=== PATIENT | male | born 1950 | race Caucasian/White ===

== ENCOUNTER 2019-09-17 07:48 | Outpatient (CLI) | payer MEDICARE, OTHER, SELFPAY ==
[2019-09-17 08:16] LABS: Alanine Aminotransferase 51 U/L (4-50); Cholesterol 121 mg/dL (0-200); HDL Direct 29 mg/dL; Triglycerides 164 mg/dL (<150)
[2019-09-17 08:27] LABS: LDL Cholesterol Direct 34 mg/dL
== END 2019-09-17 07:49 | disposition home or self-care (01) ==
LOC: ANHLAB 07:52
PROVIDERS: PCP Family Medicine; Visit Provider Family Medicine
DX: E78.5 Hyperlipidemia, unspecified (principal)
CPT/HCPCS: 36415; 80061; 84460

== ENCOUNTER 2019-12-30 08:22 | Outpatient (CLI) | payer MEDICARE, OTHER, SELFPAY ==
[2019-12-30 09:43] LABS: Thyroid Stimulating Hormone < 0.015 uIU/mL (0.465-4.680)
[2019-12-30 09:49] LABS: Free T4 Free Thyroxine 1.88 ng/mL (0.78-2.19)
[2020-01-07 04:25] LABS: Thyroglobulin <0.1 ng/mL (2.8-40.9); Thyroglobulin Antibodies <1 IU/mL (<=1)
== END 2019-12-30 08:23 | disposition home or self-care (01) ==
PROVIDERS: PCP Family Medicine
DX: C73 Malignant neoplasm of thyroid gland (principal)
CPT/HCPCS: 36415; 84432; 84439; 84443; 86800

== ENCOUNTER 2020-03-09 07:41 | Outpatient (CLI) | payer MEDICARE, SELFPAY ==
[2020-03-09 09:04] LABS: Thyroid Stimulating Hormone 0.101 uIU/mL (0.465-4.680)
[2020-03-09 09:07] LABS: Free T4 Free Thyroxine 1.53 ng/mL (0.78-2.19)
== END 2020-03-09 07:42 | disposition home or self-care (01) ==
PROVIDERS: PCP Family Medicine
DX: C73 Malignant neoplasm of thyroid gland (principal)
CPT/HCPCS: 36415; 84439; 84443

== ENCOUNTER 2020-08-04 07:42 | Outpatient (CLI) | payer MEDICARE, SELFPAY ==
[2020-08-04 07:58] LABS: Hematocrit 41.8 % (42.0-52.0); Mean Corpuscular HGB Conc 33.5 g/dl (32-36); Mean Corpuscular Volume 92.7 fl (80-100); Mean Platelet Volume 9.7 fl (7.4-10.4); Platelet Count Result 211 k/mm3 (150-375); Red Blood Count 4.51 M/mm3 (4.6-6.20); Red Cell Distribution Width 12.8 % (11.5-14.5); White Blood Count 6.7 K/mm3 (4.5-10.0)
[2020-08-04 08:09] LABS: Alanine Aminotransferase 45 U/L (4-50); Albumin Level 4.1 g/dL (3.5-5.1); Alkaline Phosphatase 54 U/L (38-126); Aspartate Amino Transferase 38 U/L (17-59); Bilirubin,Total 0.4 mg/dL (0.2-1.3); Cholesterol 138 mg/dL (0-200); HDL Direct 30 mg/dL; Triglycerides 208 mg/dL (<150)
[2020-08-04 08:34] LABS: LDL Cholesterol Direct < 30 mg/dL
[2020-08-04 08:42] LABS: Prostate Specific Antigen 2.5 ng/mL (< OR = 4.0); Thyroid Stimulating Hormone 0.041 uIU/mL (0.465-4.680)
[2020-08-04 09:00] LABS: Free T4 Free Thyroxine 1.88 ng/mL (0.78-2.19)
== END 2020-08-04 07:43 | disposition home or self-care (01) ==
PROVIDERS: PCP Family Medicine; Visit Provider Family Medicine
DX: K57.90 Diverticulosis of intestine, part unspecified, without perforation or abscess without bleeding (principal); E03.9 Hypothyroidism, unspecified; E78.2 Mixed hyperlipidemia; Z12.5 Encounter for screening for malignant neoplasm of prostate; Z13.220 Encounter for screening for lipoid disorders
CPT/HCPCS: 36415; 80061; 80076; 84153; 84439; 84443; 85027; G0103

== ENCOUNTER 2020-09-05 07:44 | Outpatient (CLI) | payer MEDICARE, SELFPAY ==
[2020-09-05 08:08] LABS: Basophils Percent Auto 0.4 % (0.2-1.2); Eosinophils Absolute Auto 0.1 K/mm3 (0-0.3); Eosinophils Percent Auto 1.4 % (0-4.4); Hematocrit 43.2 % (42.0-52.0); Hemoglobin 14.7 g/dL (14.0-18.0); Immature Granulocyte Absolute 0.03 K/mm3 (0.00-0.031); Immature Granulocyte Percent A 0.4 % (0-0.5); Lymphocytes Absolute Auto 2.98 K/mm3 (0.9-3.2); Lymphocytes Percent Auto 41.3 % (18.3-44.2); Mean Corpuscular Hemoglobin 31.3 pg (26-34); Mean Corpuscular Volume 92.1 fl (80-100); Mean Platelet Volume 9.9 fl (7.4-10.4); Monocytes Absolute Auto 0.6 K/mm3 (0.1-0.6); Monocytes Percent Auto 8.6 % (2.6-8.5); Neutrophils Absolute Auto 3.5 K/mm3 (1.3-6.7); Neutrophils Percent Auto 47.9 % (45.5-73.1); Platelet Count Result 225 k/mm3 (150-375); Red Blood Count 4.69 M/mm3 (4.6-6.20); White Blood Count 7.2 K/mm3 (4.5-10.0)
== END 2020-09-05 07:45 | disposition home or self-care (01) ==
PROVIDERS: PCP Family Medicine; Visit Provider Nurse Practitioner Family
DX: K57.90 Diverticulosis of intestine, part unspecified, without perforation or abscess without bleeding (principal)
CPT/HCPCS: 36415; 85025

== ENCOUNTER 2020-12-20 07:44 | Outpatient (CLI) | payer MEDICARE, SELFPAY ==
[2020-12-20 08:58] LABS: Free T4 Free Thyroxine 1.98 ng/mL (0.78-2.19)
[2020-12-20 09:07] LABS: Thyroid Stimulating Hormone 0.044 uIU/mL (0.465-4.680)
[2020-12-24 01:39] LABS: Thyroglobulin <0.1 ng/mL (2.8-40.9); Thyroglobulin Antibodies <1 IU/mL (<=1)
== END 2020-12-20 07:45 | disposition home or self-care (01) ==
LOC: ANHLAB 07:50
PROVIDERS: PCP Family Medicine
DX: C73 Malignant neoplasm of thyroid gland (principal)
CPT/HCPCS: 36415; 84432; 84439; 84443; 86800

== ENCOUNTER 2021-05-05 08:14 | Outpatient (CLI) | payer MEDICARE, SELFPAY ==
[2021-05-05 09:06] LABS: Cholesterol 108 mg/dL (0-200); HDL Direct 28 mg/dL; Triglycerides 152 mg/dL (<150)
[2021-05-05 09:20] LABS: LDL Cholesterol Direct < 30 mg/dL
== END 2021-05-05 08:15 | disposition home or self-care (01) ==
LOC: ANHLAB 08:16
PROVIDERS: PCP Family Medicine; Visit Provider Family Medicine
DX: E78.2 Mixed hyperlipidemia (principal)
CPT/HCPCS: 36415; 80061

== ENCOUNTER 2021-11-23 10:39 | Emergency (ER) | payer MEDICARE, SELFPAY ==
[2021-11-23 10:50] VITALS: BP 150/83; PULSE 66; RESP 24; TEMP 36.3; O2SAT 100
--- NOTE | 2021-11-23 10:54 | ED.GENADULT ---
HPI - General Adult General Chief complaint: Chest Pain Stated complaint: Abdominal Pain History of Present Illness HPI narrative: 71 y/o male. PMHx Thyroid carcinoma, S/P Thyroidectomy, Secondary Hypothyroid, Dyslipidemia. Presents to [facility] this AM with acute complaints of mid-epigastric chest pain. The patient reports a sharp mid-epigastric discomfort, present for the past 48 hours. He tells me this started with left side chest pain, now radiating mid-sternal since awakening this AM. -Associated dyspnea. No cough. -Denies dizziness, palpitations, N/V, edema. -Non-smoker. -Resume Statin. -No prior cardiac intervention or stenting. -Family Hx of cardiac disease, HTN. Related Data Home Medications Medication Instructions Recorded Confirmed aspirin 81 mg tablet,delayed 81 mg PO DAILY 02/26/20 11/23/21 release levothyroxine 25 mcg tablet 12.5 mcg PO DAILY 02/26/20 11/23/21 (Synthroid) multivitamin 1 tablet PO DAILY 02/26/20 11/23/21 Allergies Allergy/AdvReac Type Severity Reaction Status Date / Time No Known Allergies Allergy Verified 11/23/21 10:51 Review of Systems Review of Systems: Cardiovascular: Chest Pain. Remainder of ROS Reviewed: Negative. [facility] Past Medical History Medical History BMI 25.0-25.9,adult BMI 26.0-26.9,adult Diverticul disease small and large intestine, no perforati or abscess Hypothyroidism Insomnia Mixed hyperlipidemia Screening for prostate cancer Surgical History Surgical History H/O thyroidectomy History of tonsillectomy Family History Family History Father No problems noted. Mother No problems noted. Sibling No problems noted. Other Family history of elevated blood lipids Family history of thyroid disease Hypertension Social History Social History Smoking status: Never smoker Alcohol intake: current Exam Narrative: GENERAL: no apparent distress. EYES: PERRL. EARS: External ears normal. NOSE: External nose normal. CARDIOVASCULAR: Regular rate and rhythm. RESPIRATORY: Clear to auscultation. GASTROINTESTINAL: Abdomen soft SKIN: NEURO: Alert, and age appropriate. EXTREMITIES: No edema. Course Course Level of Care: Express Care Visit Vital Signs Vital signs: Vital Signs Temperature 36.3 C L 11/23/21 10:50 Pulse Rate 66 11/23/21 10:50 Respiratory Rate 24 H 11/23/21 10:50 Blood Pressure 150/83 H 11/23/21 10:50 Pulse Oximetry 100 11/23/21 10:50 Oxygen Delivery Room Air 11/23/21 10:50 Temperature 36.3 C L 11/23/21 11:12 Pulse Rate 66 11/23/21 11:12 Respiratory Rate 24 H 11/23/21 11:12 Blood Pressure 150/83 H 11/23/21 11:12 Pulse Oximetry 100 11/23/21 11:12 Oxygen Delivery Room Air 11/23/21 11:12 Transfer Transfered to: [facility] (ED) Transportation: ALS Transfer rationale: ACS, Inferior SC. Accepting physician: MD Patel Medical Decision Making MDM Narrative Medical decision making narrative: -ECG: ACS V2-6 ST elevations, new ischemic findings. -ASA 324 given X1. -IV Access established. -EMS/ALS Transport to [facility]. -Accepting ED MD Patel. Differential Diagnosis Differential Diagnosis: Differential Diagnosis: Consideration of the following conditions may be warranted for the presenting problem, they are not final diagnoses: : ACS, AAA, PE, PNA, GERD, Musculoskeletal pain, and/or other. Vital Signs Vital Signs: Vital Signs Temperature 36.3 C L 11/23/21 10:50 Pulse Rate 66 11/23/21 10:50 Respiratory Rate 24 H 11/23/21 10:50 Blood Pressure 150/83 H 11/23/21 10:50 Pulse Oximetry 100 11/23/21 10:50 Oxygen Delivery Room Air 11/23/21 10:50 Temperature
[2021-11-23] MEDS: ASPIRIN 81 MG CHEWABLE TABLET 324 MG PO (11:07)
[2021-11-23 11:12] VITALS: BP 150/83; PULSE 66; RESP 24; TEMP 36.3; O2SAT 100
--- NOTE | 2021-11-23 11:15 | ED.GENADULT ---
HPI - General Adult General Chief complaint: Chest Pain Stated complaint: Abdominal Pain Related Data Home Medications Medication Instructions Recorded Confirmed aspirin 81 mg tablet,delayed 81 mg PO DAILY 02/26/20 11/23/21 release levothyroxine 25 mcg tablet 12.5 mcg PO DAILY 02/26/20 11/23/21 (Synthroid) multivitamin 1 tablet PO DAILY 02/26/20 11/23/21 Allergies Allergy/AdvReac Type Severity Reaction Status Date / Time No Known Allergies Allergy Verified 11/23/21 10:51 [facility] Past Medical History Medical History BMI 25.0-25.9,adult BMI 26.0-26.9,adult Diverticul disease small and large intestine, no perforati or abscess Hypothyroidism Insomnia Mixed hyperlipidemia Screening for prostate cancer Surgical History Surgical History H/O thyroidectomy History of tonsillectomy Family History Family History Father No problems noted. Mother No problems noted. Sibling No problems noted. Other Family history of elevated blood lipids Family history of thyroid disease Hypertension Social History Social History Smoking status: Never smoker Alcohol intake: current Course Vital Signs Vital signs: Vital Signs Temperature 36.3 C L 11/23/21 10:50 Pulse Rate 66 11/23/21 10:50 Respiratory Rate 24 H 11/23/21 10:50 Blood Pressure 150/83 H 11/23/21 10:50 Pulse Oximetry 100 11/23/21 10:50 Oxygen Delivery Room Air 11/23/21 10:50 Temperature 36.3 C L 11/23/21 11:12 Pulse Rate 66 11/23/21 11:12 Respiratory Rate 24 H 11/23/21 11:12 Blood Pressure 150/83 H 11/23/21 11:12 Pulse Oximetry 100 11/23/21 11:12 Oxygen Delivery Room Air 11/23/21 11:12 Medical Decision Making Vital Signs Vital Signs: Vital Signs Temperature 36.3 C L 11/23/21 10:50 Pulse Rate 66 11/23/21 10:50 Respiratory Rate 24 H 11/23/21 10:50 Blood Pressure 150/83 H 11/23/21 10:50 Pulse Oximetry 100 11/23/21 10:50 Oxygen Delivery Room Air 11/23/21 10:50 Temperature 36.3 C L 11/23/21 11:12 Pulse Rate 66 11/23/21 11:12 Respiratory Rate 24 H 11/23/21 11:12 Blood Pressure 150/83 H 11/23/21 11:12 Pulse Oximetry 100 11/23/21 11:12 Oxygen Delivery Room Air 11/23/21 11:12 Discharge Plan Discharge Clinical Impression: ACS (acute coronary syndrome) Patient Disposition: Acute Care Hospital Condition: Serious Prescriptions: No Action levothyroxine [Synthroid] 25 mcg tablet 12.5 mcg PO DAILY aspirin 81 mg tablet,delayed release (DR/EC) 81 mg PO DAILY multivitamin Tablet 1 tablet PO DAILY atorvastatin [Lipitor] 20 mg tablet 20 mg PO DAILY Qty: 90 3RF Follow-up/Referrals: Black Ireland MD [Primary Care Provider] - Time of Disposition: 11:11
--- NOTE | 2021-11-23 11:25 | ECG_ITS ---
Measurements Intervals [place] Rate: 63 P: 11 [place]: 189 QRS: 8 QRSD: 85 T: 52 QT: 391 QTc: 403 Interpretive Statements SINUS RHYTHM POSSIBLE OLD INFERIOR MYOCARDIAL INFARCTION NO PREVIOUS ECG AVAILABLE FOR COMPARISON Electronically Signed On 11-23-2021 14:57:47 CDT by Marianela Finch M.D.
== END 2021-11-23 11:15 | disposition short-term general hospital (02) ==
PROVIDERS: Emergency Provider Nurse Practitioner Adult Health; PCP Family Medicine
DX: I24.9 Acute ischemic heart disease, unspecified (principal); E89.0 Postprocedural hypothyroidism; E78.2 Mixed hyperlipidemia; Z85.850 Personal history of malignant neoplasm of thyroid
CPT/HCPCS: 93005; 99215; A9270; G0463

== ENCOUNTER 2021-11-23 11:31 | Emergency (ER) | payer MEDICARE, SELFPAY ==
[2021-11-23] VITALS (21 sets, daily range): BP systolic 120–152; BP diastolic 75–94; PULSE 0–80; RESP 15–37; O2SAT 91–100
--- NOTE | ~2021-11-23 | CT_ITS ---
EXAMINATION: CT abdomen pelvis w con DATE: 11/23/2021 12:32 INDICATION: Left upper quadrant abdominal pain and epigastric pain. TECHNIQUE: Computed tomography (CT) of the abdomen and pelvis was performed with 100 mL Omnipaque-350 intravenous contrast. Automated exposure control and iterative reconstruction technique were employe d. The dose-length product was 465.36 mGy-cm. COMPARISON: 01/25/2017 FINDINGS: Lung bases are clear. Heart size is normal. No pericardial or pleural effusion. Couple small calcifie d gallstones at the neck of the normal gallbladder with no wall thickening or pericholecystic inflamm atory stranding to suggest acute cholecystitis. Liver is normal. No intra or extra hepatic biliary du ctal dilation. Spleen, pancreas and bilateral adrenal glands are normal. Bilateral renal cysts measur ing 4.7 cm on the left and 1.1 cm on the right. Possible peripelvic cysts at both kidneys. No hydrone phrosis. Prostatomegaly measuring 5.8 x 5.0 cm. Bladder is normal. There is prominent colonic diverti culosis with a sigmoid and descending colon predominance. There is no adjacent inflammatory change to suggest diverticulitis. Small bowel and appendix are normal. Small fat-containing left inguinal kendy ia. No free intraperitoneal gas or fluid. No pathologically enlarged abdominal or pelvic lymphadenopa thy. Tiny fat-containing umbilical hernia. Severe lower lumbar spondylosis. IMPRESSION: 1. No acute intra-abdominal/pelvic process. 2. Cholelithiasis. 3. Prominent descending and sigmoid diverticulosis. 4. Prostatomegaly. Reviewed, dictated and finalized at location B.
--- NOTE | ~2021-11-23 | XR_ITS ---
EXAMINATION: XR chest 2V DATE: 11/23/2021 12:22 INDICATION: Mid chest pain TECHNIQUE: PA and lateral views of the chest were obtained. COMPARISON: CT abdomen and pelvis dated 11/23/2021 FINDINGS: The lungs are clear with no focal airspace opacities, pulmonary edema, pleural effusion or pneumothor ax. The cardiomediastinal silhouette is normal. Thoracic spondylosis with mild anterior wedging of mu ltiple vertebral bodies in the mid and lower thoracic spine. IMPRESSION: 1. No acute cardiopulmonary disease. Reviewed, dictated and finalized at location B.
--- NOTE | 2021-11-23 11:39 | ECG_ITS ---
Measurements Intervals [place] Rate: 59 P: 11 [place]: 181 QRS: -15 QRSD: 109 T: 17 QT: 420 QTc: 417 Interpretive Statements SINUS BRADYCARDIA LOW QRS VOLTAGE IN PRECORDIAL LEADS [QRS DEFLECTION < 1.0 mV IN CHEST LEADS] INFERIOR MYOCARDIAL INFARCTION , PROBABLY OLD [40+ ms Q WAVE AND/OR ST/T ABNORMALITY IN II/aVF] COMPARED TO ECG 11/23/2021 10:59:00 SINUS BRADYCARDIA NOW PRESENT Electronically Signed On 11-23-2021 14:58:43 CDT by Marianela Finch M.D.
--- NOTE | 2021-11-23 11:52 | ED.GENADULT ---
HPI - General Adult General Chief complaint: Chest Pain Stated complaint: epigastric pain Time Seen by Provider: 11/23/21 11:36 History of Present Illness HPI narrative: 71-year-old male with history of high cholesterol , diverticulitis and prior thyroid cancer presented the emergency department for evaluation of epigastric abdominal pain. Patient states approximately 2 days ago he was having some mild left upper quadrant abdominal pain which he states is not uncommon. Patient described the pain as aching and the pain did ultimately resolved. Patient was able to work out yesterday he denied any associated chest pain or shortness of breath. Patient states when he woke up this morning he did have some onset of epigastric pain. Patient called his primary care physician and was referred to either urgent care or to the emergency department. Patient had some ST elevation on his EKG and the practitioner was concerned that he may be having a STEMI. Repeat EKGs showed no persistent elevation. Patient's initial EKG showed no reciprocal depressions. Upon arrival emergency department patient states that his pain is resolved. Patient states he was having some epigastric pain but that the pain has resolved. Related Data Home Medications Medication Instructions Recorded Confirmed aspirin 81 mg tablet,delayed 81 mg PO DAILY 02/26/20 11/23/21 release levothyroxine 25 mcg tablet 12.5 mcg PO DAILY 02/26/20 11/23/21 (Synthroid) multivitamin 1 tablet PO DAILY 02/26/20 11/23/21 Allergies Allergy/AdvReac Type Severity Reaction Status Date / Time No Known Allergies Allergy Verified 11/23/21 10:51 Review of Systems Review of Systems: CONSTITUTIONAL: Denies fever, chills, or sweats. EYES: Denies visual changes, redness, or discharge. ENT: Denies rhinorrhea, congestion, sore throat, or otalgia. CARDIOVASCULAR: See HPI RESPIRATORY: Denies cough or dyspnea. GASTROINTESTINAL: See HPI GENITOURINARY: Denies dysuria or hematuria. SKIN: Denies rash or itching. MUSCULOSKELETAL: Denies back pain, joint pain, or myalgia. NEUROLOGIC: Denies headache, numbness, or weakness. PSYCHIATRIC: Denies anxiety or depression. [facility] Past Medical History Medical History BMI 25.0-25.9,adult BMI 26.0-26.9,adult Diverticul disease small and large intestine, no perforati or abscess Hypothyroidism Insomnia Mixed hyperlipidemia Screening for prostate cancer Surgical History Surgical History H/O thyroidectomy History of tonsillectomy Family History Family History Father No problems noted. Mother No problems noted. Sibling No problems noted. Other Family history of elevated blood lipids Family history of thyroid disease Hypertension Social History Social History Smoking status: Never smoker Alcohol intake: current Exam Narrative: APPEARANCE: Well appearing, no pain, no distress, well-nourished. HEAD: normocephalic, atraumatic. EYES: PERRLA/EOMI, conjunctivae clear. NOSE: Normal no drainage NECK: Supple. No adenopathy, no masses. RESPIRATORY: Airway patent, respirations nonlabored. Clear to auscultation bilaterally, no rales, rhonchi, wheezing. CARDIOVASCULAR: Regular rate and rhythm without murmurs rubs or gallops. ABDOMINAL: Soft, nondistended, normal bowel sounds, mild epigastric tenderness to palpation. MUSCULOSKELETAL: Moves all extremities. Strength/ROM intact, No edema, No calf tenderness. NEURO: Alert. Cranial nerves II through XII intact. Grossly intact SKIN: Warm, dry. Normal Color Course Course Emergency Course: Patient states that he is symptom-free at this time. Patient's EKG showed sinus bradycardia no evidence of acute STEMI. Patient CT scan showed no acute a
[2021-11-23 12:03] LABS: Lactic Acid Reflex 1.4 mmol/L (0.7-2.0)
[2021-11-23 12:04] LABS: Alanine Aminotransferase 51 U/L (6-50); Albumin Level 4.4 g/dL (3.5-5.1); Alkaline Phosphatase 54 U/L (38-126); Anion Gap 11 mmol/L (8-16); Aspartate Amino Transferase 38 U/L (17-59); Bilirubin,Total 0.6 mg/dL (0.2-1.3); Blood Urea Nitrogen 14 mg/dL (9-20); Calcium 8.7 mg/dL (8.4-10.2); Carbon Dioxide 25 mmol/L (22-30); Chloride 101 mmol/L (98-107); Estimated CRCL calculation 78 ml/min; Estimated Glomerular Filt Rate > 60; Glucose 96 mg/dL (65-110); Lipase 126 U/L (23-300); Potassium 4.3 mmol/L (3.4-5.0); Sodium 137 mmol/L (137-145)
[2021-11-23 12:15] LABS: Troponin I < 0.012 ng/mL (0.000-0.034)
[2021-11-23 12:25] LABS: Basophils Percent Auto 0.5 % (0.2-1.2); Eosinophils Percent Auto 0.6 % (0-4.4); Hematocrit 44.1 % (42.0-52.0); Hemoglobin 14.8 g/dL (14.0-18.0); Immature Granulocyte Absolute 0.01 K/mm3 (0.00-0.031); Immature Granulocyte Percent A 0.2 % (0-0.5); Lymphocytes Percent Auto 32.9 % (18.3-44.2); Mean Corpuscular HGB Conc 33.6 g/dl (32-36); Mean Corpuscular Hemoglobin 31.5 pg (26-34); Mean Corpuscular Volume 93.8 fl (80-100); Mean Platelet Volume 10.4 fl (7.4-10.4); Monocytes Absolute Auto 0.7 K/mm3 (0.1-0.6); Monocytes Percent Auto 10.3 % (2.6-8.5); Neutrophils Absolute Auto 3.5 K/mm3 (1.3-6.7); Neutrophils Percent Auto 55.5 % (45.5-73.1); Platelet Count Result 230 k/mm3 (150-375); Red Cell Distribution Width 12.9 % (11.5-14.5); White Blood Count 6.4 K/mm3 (4.5-10.0)
[2021-11-23 12:45] LABS: Add Urine Microscopic? YES; Appearance Urine Cloudy (Clear); Bilirubin Urine Negative (Negative); Blood Urine Negative (Negative); Color Urine Yellow (Yellow); Glucose Urine UA Negative (Negative); Ketones Urine Negative (Negative); Leukocyte Esterase Ur Negative LEU/UL (Negative); Nitrate Urine Negative (Negative); Protein Urine Negative (Negative); RBC Urine 0-2 /hpf (0-2); Specific Grav Ur 1.016 (1.001-1.035); Urobilinogen Urine Negative mg/dL (<2.0); WBC Urine 0-3 /hpf
--- NOTE | 2021-11-23 12:54 | PC.NURSE ---
pt c/o left lower chest pain. order obtained for additional ekg
--- NOTE | 2021-11-23 13:04 | ECG_ITS ---
Measurements Intervals [place] Rate: 56 P: -2 [place]: 211 QRS: -14 QRSD: 95 T: 9 QT: 425 QTc: 412 Interpretive Statements SINUS BRADYCARDIA WITH FIRST DEGREE AV BLOCK COMPARED TO ECG 11/23/2021 11:34:53 FIRST DEGREE AV BLOCK NOW PRESENT Electronically Signed On 11-23-2021 15:10:25 CDT by Marianela Finch M.D.
[2021-11-23 15:10] LABS: Troponin I < 0.012 ng/mL (0.000-0.034)
== END 2021-11-23 16:34 | disposition home or self-care (01) ==
PROVIDERS: Emergency Provider Emergency Medicine; PCP Family Medicine
DX: R10.12 Left upper quadrant pain (principal); R10.13 Epigastric pain; E89.0 Postprocedural hypothyroidism; E78.2 Mixed hyperlipidemia
CPT/HCPCS: 36415; 71046; 74177; 80053; 81001; 83605; 83690; 84484; 85025; 93005; 99284; A9270; Q9967

== ENCOUNTER 2021-12-04 07:46 | Outpatient (CLI) | payer MEDICARE, SELFPAY ==
[2021-12-04 08:29] LABS: Alanine Aminotransferase 61 U/L (6-50); Albumin Level 4.2 g/dL (3.5-5.1); Alkaline Phosphatase 56 U/L (38-126); Aspartate Amino Transferase 38 U/L (17-59); Bilirubin,Total 0.6 mg/dL (0.2-1.3); Cholesterol 105 mg/dL (0-200); HDL Direct 33 mg/dL; Triglycerides 126 mg/dL (<150)
[2021-12-04 08:41] LABS: LDL Cholesterol Direct 30 mg/dL
[2021-12-04 09:00] LABS: Prostate Specific Antigen 2.7 ng/mL (< OR = 4.0); Thyroid Stimulating Hormone 0.025 uIU/mL (0.465-4.680)
[2021-12-04 09:50] LABS: Free T4 Free Thyroxine 2.26 ng/mL (0.78-2.19)
== END 2021-12-04 07:47 | disposition home or self-care (01) ==
LOC: ANHLAB 07:48
PROVIDERS: PCP Family Medicine; Visit Provider Family Medicine
DX: E03.9 Hypothyroidism, unspecified (principal); N40.0 Benign prostatic hyperplasia without lower urinary tract symptoms; Z12.5 Encounter for screening for malignant neoplasm of prostate; E78.2 Mixed hyperlipidemia; Z13.220 Encounter for screening for lipoid disorders
CPT/HCPCS: 36415; 80061; 80076; 84153; 84439; 84443; G0103

== ENCOUNTER 2021-12-08 07:48 | Outpatient (CLI) | payer MEDICARE, SELFPAY ==
--- NOTE | ~2021-12-08 | US_ITS ---
US abdomen limited INDICATION: Abdomen pain PROCEDURE: Realtime right upper abdominal ultrasound. COMPARISON: No prior studies for comparison. FINDINGS: The pancreas is normal without focal mass or pancreatic ductal dilation. Liver echotexture is normal without focal mass or intrahepatic biliary dilatation. There is normal directional flow i n the portal vein. Gallbladder contains stones of the gallbladder neck. Common bile duct measures 4 mm. No sonographic Jay's sign. IMPRESSION: 1: Cholelithiasis. Reviewed, dictated and finalized at location B. IMPRESSION: 1: Cholelithiasis.
== END 2021-12-08 07:49 | disposition home or self-care (01) ==
PROVIDERS: PCP Family Medicine; Visit Provider Nurse Practitioner
DX: R10.10 Upper abdominal pain, unspecified (principal); K80.20 Calculus of gallbladder without cholecystitis without obstruction
CPT/HCPCS: 76705

== ENCOUNTER 2021-12-18 09:49 | Day surgery (SDC) | payer MEDICARE, SELFPAY ==
[2021-12-04 12:02] VITALS: BMI 25.0
[2021-12-18 10:10] VITALS: BP 147/92; PULSE 67; RESP 16; TEMP 36.9; O2SAT 100; BMI 25.9
[2021-12-18] MEDS: LACTATED RINGERS 1,000 ML 150 ML IV CONT (10:31)
--- NOTE | 2021-12-18 10:38 | WPDANESEPPF ---
Anes - Initial Pre Proc Eval Procedure: Operation Date: 12/18/21 11:30 Proposed Procedures p Esophagogastroduodenoscopy - Jonny Ledesma MD Date/Time: 12/18/21 10:38 Surgeon: Jonny Ledesma MD Pre Op Diagnosis: Epigastric Pain Patient Data Age: 71 Gender: M Height: 1.78 m Weight: 82.2 kg Last Vital Signs Temp 36.9 C 12/18/21 10:10 Pulse 67 12/18/21 10:10 Resp 16 12/18/21 10:10 BP 147/92 H 12/18/21 10:10 Pulse Ox 100 12/18/21 10:10 O2 Del Method Room Air 12/18/21 10:10 Allergies Allergy/AdvReac Type Severity Reaction Status Date / Time No Known Allergies Allergy Verified 12/18/21 10:09 Home Medications Medication Instructions Recorded Confirmed Type aspirin 81 mg tablet,delayed 81 mg PO DAILY 02/26/20 12/18/21 History release levothyroxine 25 mcg tablet 12.5 mcg PO DAILY 02/26/20 12/18/21 History (Synthroid) multivitamin 1 tablet PO DAILY 02/26/20 12/18/21 History atorvastatin 20 mg tablet (Lipitor) 20 mg PO DAILY #90 tabs 07/26/21 12/18/21 Rx omeprazole magnesium 20 mg 20 mg PO DAILY #30 tabs 11/30/21 12/18/21 Rx tablet,delayed release (Prilosec OTC) Patient hx anesthesia problems: none Family hx anesthesia problems: none Results Review: All pre-operative results and documents have been reviewed as part of the pre-operative evaluation. [facility] Past Medical History Medical History Basal cell carcinoma, face BMI 25.0-25.9,adult BMI 26.0-26.9,adult BPH (benign prostatic hyperplasia) Cholelithiasis Colon cancer screening Diverticul disease small and large intestine, no perforati or abscess Hypothyroidism Insomnia LUQ abdominal pain Mixed hyperlipidemia Prostate enlargement Rib pain on left side Screening for prostate cancer Upper abdominal pain Upper abdominal pain Surgical History Surgical History H/O thyroidectomy History of tonsillectomy Family History Family History Father No problems noted. Mother No problems noted. Sibling No problems noted. Other Family history of elevated blood lipids Family history of thyroid disease Hypertension Social History Social History Smoking status: Never smoker Alcohol intake: current Substance use: never Substance use type: does not use Living arrangements: with family Spiritual care concerns: No Anes - Eval Final PreProcedure Day of Procedure 12/18/21 10:38 Patient weight: normal Heart: regular rate and rhythm Lungs: clear to auscultation Airway: Mallampati scale class II Neurological: alert and oriented Last oral intake: >/= 8 hours ASA classification: II Emergent: no Anesthetic plan: proceed Anesthesia type and monitoring: general GIVS and standard monitoring Results Review: All pre-operative results and documents have been reviewed as part of the pre-operative evaluation. Informed Consent: The patient's anesthetic plan and its attendant risks and benefits were discussed with the patient/family/POA. Questions were solicited and answers provided to the satisfaction of the patient/family/POA.
--- NOTE | 2021-12-18 10:52 | WPDHPUPDATE1 ---
History and Physical Update Update Date/Time: 12/18/21 10:52 History and Physical has been reviewed, including an updated exam of the patient. There are NO changes in the patient's condition. Risks, benefits, and alternatives have been discussed and questions answered. Patient agrees to proceed with procedure.
[2021-12-18 11:09] VITALS: BP 109/70; PULSE 66; RESP 14; O2SAT 94
--- NOTE | 2021-12-18 11:12 | WPDANESPN ---
Anes - Prog Note Post-Op Date/Time: 12/18/21 11:12 Cardiovascular status: normal Respiratory status: normal Airway patency: baseline Mental status: baseline Post-Op hydration status: normal Vital Signs: Last Vital Signs Temp 36.9 C 12/18/21 10:10 Pulse 67 12/18/21 10:10 Resp 16 12/18/21 10:10 BP 147/92 H 12/18/21 10:10 Pulse Ox 100 12/18/21 10:10 O2 Del Method Room Air 12/18/21 10:10 Pain Score (VAS): 0/10 Patient Feedback: Patient satisfied with anesthetic care.
[2021-12-18 11:19] VITALS: BP 113/70; PULSE 56; RESP 12; O2SAT 97
[2021-12-18 11:29] VITALS: BP 115/79; PULSE 57; RESP 12; O2SAT 98
== END 2021-12-18 11:51 | disposition home or self-care (01) ==
PROVIDERS: PCP Family Medicine; Visit Provider Internal Medicine Gastroenterology
PROC: 0DJ08ZZ Inspection of Upper Intestinal Tract, Via Natural or Artificial Opening Endoscopic (ICD-10-PCS; CPT 43235; principal; 2021-12-18 11:30)
DX: R10.13 Epigastric pain (principal)
CPT/HCPCS: 43239

== ENCOUNTER 2022-01-09 08:07 | Outpatient (CLI) | payer MEDICARE, SELFPAY ==
[2022-01-09 09:33] LABS: Free T4 Free Thyroxine 1.97 ng/mL (0.78-2.19)
[2022-01-09 09:40] LABS: Thyroid Stimulating Hormone 0.026 uIU/mL (0.465-4.680)
[2022-01-12 05:13] LABS: Thyroglobulin <0.1 ng/mL (2.8-40.9); Thyroglobulin Antibodies <1 IU/mL (<=1)
== END 2022-01-09 08:08 | disposition home or self-care (01) ==
LOC: ANHLAB 08:10
PROVIDERS: PCP Family Medicine
DX: C73 Malignant neoplasm of thyroid gland (principal)
CPT/HCPCS: 36415; 84432; 84439; 84443; 86800

== ENCOUNTER 2022-04-03 08:08 | Outpatient (CLI) | payer MEDICARE, SELFPAY ==
[2022-04-03 09:16] LABS: Free T4 Free Thyroxine 1.71 ng/mL (0.78-2.19)
[2022-04-03 09:23] LABS: Thyroid Stimulating Hormone 0.389 uIU/mL (0.465-4.680)
== END 2022-04-03 08:09 | disposition home or self-care (01) ==
PROVIDERS: PCP Family Medicine
DX: E89.0 Postprocedural hypothyroidism (principal)
CPT/HCPCS: 36415; 84439; 84443

== ENCOUNTER → 2022-09-12 09:48 | Outpatient (CLI) | payer MEDICARE, SELFPAY ==
--- NOTE | ~2022-09-12 | XR_ITS ---
Left Hand Technique: PA, oblique, and lateral views were obtained. Clinical History: Pain Findings: No acute fracture or dislocation is seen. Osseous alignment is anatomic. Joint spaces are p reserved. Soft tissues are unremarkable. Impression: Unremarkable left hand. Reviewed, dictated and finalized at location M. Impression: Unremarkable left hand.
== END ==
PROVIDERS: PCP Family Medicine; Visit Provider Nurse Practitioner Family
DX: M79.645 Pain in left finger(s) (principal)
CPT/HCPCS: 73130

== ENCOUNTER 2022-11-09 15:17 | Emergency (ER) | payer MEDICARE, SELFPAY ==
--- NOTE | 2022-11-09 15:26 | ED.EYEPROB ---
HPI - Eye Problem General Chief complaint: Eye Problems Stated complaint: debris in lt eye Time Seen by Provider: 11/09/22 15:27 Source: patient, RN notes reviewed and old records reviewed Mode of arrival: ambulatory Limitations: no limitations History of Present Illness HPI Narrative: 72-year-old male presents to the [facility] with a feeling of something in his left eye. Was cutting grass. Patient denies any change in vision or blurry vision. Normally wears glasses, no contact lenses. States that he just updated his tetanus within the last 2 weeks [facility], got his flu shot at the same time Related Data Patient tetanus UTD: Yes Home Medications Medication Instructions Recorded Confirmed aspirin 81 mg tablet,delayed 81 mg PO DAILY 02/26/20 11/09/22 release levothyroxine 25 mcg tablet 12.5 mcg PO DAILY 02/26/20 11/09/22 (Synthroid) multivitamin 1 tablet PO DAILY 02/26/20 11/09/22 Allergies Allergy/AdvReac Type Severity Reaction Status Date / Time No Known Allergies Allergy Verified 10/30/22 09:06 Review of Systems Review of Systems: All systems reviewed & are unremarkable except as noted in HPI and below Constitutional: Constitutional: Reports no additional constitutional complaints Eyes: Eyes: Reports as per HPI and Reports irritation (left eye) ENT: Reports system reviewed and no additional complaints, except as documented Cardiovascular: Cardiovascular: Reports no additional cardiovascular complaints, Denies chest pain and Denies dyspnea Respiratory: Respiratory: Reports no additional respiratory complaints, Denies chest congestion, Denies cough and Denies dyspnea Gastrointestinal: Gastrointestinal: Reports no additional gastrointestinal complaints, Denies abdominal pain, Denies nausea and Denies vomiting Musculoskeletal: Musculoskeletal: Reports no additional musculoskeletal complaints Integumentary/Breasts: Skin/Breast: Reports system reviewed and no additional complaints, except as docu Neurologic: Reports system reviewed and no additional complaints, except as documented Psychiatric: Psychiatric: Reports no additional psychiatric complaints Allergic/Immunologic: Allergic/Immunologic: Reports no additional allergic/immunologic complaints PMFSH Past Medical History Medical History Basal cell carcinoma, face BMI 25.0-25.9,adult BMI 26.0-26.9,adult BMI 27.0-27.9,adult BPH (benign prostatic hyperplasia) Cholelithiasis Colon cancer screening Diverticul disease small and large intestine, no perforati or abscess Hypothyroidism Insomnia LUQ abdominal pain Mixed hyperlipidemia Prostate enlargement Rib pain on left side Screening for prostate cancer Upper abdominal pain Upper abdominal pain Surgical History Surgical History H/O thyroidectomy History of tonsillectomy Family History Family History Father Mother Sibling No problems noted. Other Family history of elevated blood lipids Family history of thyroid disease Hypertension Social History Social History Smoking status: Never smoker Second hand tobacco smoke exposure: No Alcohol intake: current Substance use: never Substance use type: does not use Lack of Transportation: No Lack of Food: Never True Current Housing: I Have Housing Concerned About Future Housing: No Difficulty Paying Gas/Electric Bills: No Difficulty Paying for Meds: No Currently Unemployed: No Education: Bachelor's Degree Difficulty w/ Childcare or Family Care: No Living arrangements: with family Occupation/Education: retired 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 Gender identity (if verbalized by the patient):
[2022-11-09 15:29] VITALS: BP 153/89; PULSE 85; RESP 18; TEMP 36.7; O2SAT 97
[2022-11-09 15:30] VITALS: BP 153/89; PULSE 85; RESP 18; TEMP 36.7; O2SAT 97
== END 2022-11-09 16:00 | disposition home or self-care (01) ==
PROVIDERS: Emergency Provider Nurse Practitioner; PCP Family Medicine
DX: S05.02XA Injury of conjunctiva and corneal abrasion without foreign body, left eye, initial encounter (principal); E03.9 Hypothyroidism, unspecified; E78.2 Mixed hyperlipidemia; Z79.82 Long term (current) use of aspirin; Z79.899 Other long term (current) drug therapy; X58.XXXA Exposure to other specified factors, initial encounter
CPT/HCPCS: 99213; A9270; G0463

== ENCOUNTER 2022-11-27 08:16 | Outpatient (CLI) | payer MEDICARE, SELFPAY ==
[2022-11-27 08:58] LABS: Hematocrit 44.8 % (42.0-52.0); Hemoglobin 14.9 g/dL (14.0-18.0); Mean Corpuscular HGB Conc 33.3 g/dl (32-36); Mean Corpuscular Hemoglobin 31.7 pg (26-34); Mean Corpuscular Volume 95.3 fl (80-100); Mean Platelet Volume 10.2 fl (7.4-10.4); Platelet Count Result 236 k/mm3 (150-375); Red Cell Distribution Width 12.7 % (11.5-14.5); White Blood Count 7.1 K/mm3 (4.5-10.0)
[2022-11-27 09:05] LABS: Alanine Aminotransferase 43 U/L (6-50); Albumin Level 4.5 g/dL (3.5-5.1); Alkaline Phosphatase 52 U/L (38-126); Anion Gap 8 mmol/L (8-16); Aspartate Amino Transferase 35 U/L (17-59); Bilirubin,Total 0.8 mg/dL (0.2-1.3); Blood Urea Nitrogen 16 mg/dL (9-20); Calcium 8.4 mg/dL (8.4-10.2); Carbon Dioxide 25 mmol/L (22-30); Chloride 103 mmol/L (98-107); Cholesterol 134 mg/dL (0-200); Estimated Glomerular Filt Rate > 60; Glucose 97 mg/dL (65-110); HDL Direct 36 mg/dL; Potassium 4.2 mmol/L (3.4-5.0); Sodium 136 mmol/L (137-145); Triglycerides 176 mg/dL (<150)
[2022-11-27 09:37] LABS: Prostate Specific Antigen 3.3 ng/mL (< OR = 4.0)
[2022-11-27 09:42] LABS: Free T4 Free Thyroxine 1.84 ng/mL (0.78-2.19)
[2022-11-27 10:23] LABS: LDL Cholesterol Direct 42 mg/dL
== END 2022-11-27 08:17 | disposition home or self-care (01) ==
LOC: ANHLAB 08:18
PROVIDERS: PCP Family Medicine; Visit Provider Nurse Practitioner Family
DX: E03.9 Hypothyroidism, unspecified (principal); E78.2 Mixed hyperlipidemia; N40.0 Benign prostatic hyperplasia without lower urinary tract symptoms; Z12.5 Encounter for screening for malignant neoplasm of prostate
CPT/HCPCS: 36415; 80053; 80061; 84153; 84439; 84443; 85027; G0103

== ENCOUNTER 2023-04-24 09:29 | Outpatient (CLI) | payer MEDICARE, SELFPAY | END 2023-04-24 09:30 | PROVIDERS: PCP Family Medicine; Visit Provider Nurse Practitioner Family | DX: M25.562 Pain in left knee (principal) | CPT/HCPCS: 73562 ==

== ENCOUNTER 2023-06-06 14:51 | Outpatient (CLI) | payer MEDICARE, SELFPAY ==
[2023-06-06 15:16] LABS: Hematocrit 41.7 % (42.0-52.0); Hemoglobin 14.1 g/dL (14.0-18.0); Mean Corpuscular HGB Conc 33.8 g/dl (32-36); Mean Corpuscular Volume 94.8 fl (80-100); Mean Platelet Volume 10.2 fl (7.4-10.4); Platelet Count Result 208 k/mm3 (150-375); White Blood Count 8.1 K/mm3 (4.5-10.0)
[2023-06-06 15:31] LABS: Alanine Aminotransferase 40 U/L (6-50); Albumin Level 4.3 g/dL (3.5-5.1); Alkaline Phosphatase 54 U/L (38-126); Amylase 99 U/L (30-110); Anion Gap 6 mmol/L (4-12); Aspartate Amino Transferase 33 U/L (17-59); Bilirubin,Total 0.6 mg/dL (0.2-1.3); Blood Urea Nitrogen 19 mg/dL (9-20); Calcium 8.4 mg/dL (8.4-10.2); Carbon Dioxide 26 mmol/L (22-30); Chloride 103 mmol/L (98-107); Estimated Glomerular Filt Rate > 60; Glucose 98 mg/dL (65-110); Lipase 149 U/L (23-300); Potassium 4.5 mmol/L (3.4-5.0); Sodium 135 mmol/L (137-145)
== END 2023-06-06 14:52 | disposition home or self-care (01) ==
LOC: ANHLAB 14:55
PROVIDERS: PCP Family Medicine; Visit Provider Nurse Practitioner
DX: R10.13 Epigastric pain (principal); Z68.25 Body mass index [BMI] 25.0-25.9, adult
CPT/HCPCS: 36415; 80053; 82150; 83690; 85027

== ENCOUNTER 2024-01-22 09:16 | Outpatient (CLI) | payer MEDICARE, SELFPAY ==
--- NOTE | ~2024-01-22 | MR_ITS ---
MRI of the left knee Clinical history: An Technique: Coronal proton density and proton density-weighted images, sagittal proton-density and T2 fat-sat images, and axial proton-density fat-saturated images were acquired. Findings: Anterior and posterior cruciate ligament are intact. Medial collateral ligament and the lat eral collateral ligament complex are intact. Popliteus tendon is intact. There is flap tear of the body segment of the medial meniscus. Lateral meniscus intact. There is high-grade chondromalacia along the medial patellar facet. There is high-grade chondromalaci a the inferior aspect of the femoral trochlea with focal subchondral cystic change. There is mild cho ndromalacia the medial and lateral joint lines. Extensor mechanism is intact. No significant joint effusion or Watters's cyst. Impression: Flap tear of the body segment of the medial meniscus. 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 Reviewed, dictated and finalized at [facility]. 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
== END 2024-01-22 09:17 | disposition home or self-care (01) ==
LOC: MICIMG 09:19
PROVIDERS: PCP Family Medicine; Visit Provider Nurse Practitioner Family
DX: S83.242A Other tear of medial meniscus, current injury, left knee, initial encounter (principal); X58.XXXA Exposure to other specified factors, initial encounter
CPT/HCPCS: 73721

== ENCOUNTER 2024-02-14 08:05 | Outpatient (CLI) | payer MEDICARE, SELFPAY ==
[2024-02-14 08:49] LABS: Basophils Percent Auto 0.4 % (0.2-1.2); Eosinophils Absolute Auto 0.1 K/mm3 (0-0.3); Eosinophils Percent Auto 1.6 % (0-4.4); Hemoglobin 14.2 g/dL (14.0-18.0); Immature Granulocyte Absolute 0.03 K/mm3 (0.00-0.031); Immature Granulocyte Percent A 0.4 % (0-0.5); Lymphocytes Absolute Auto 2.87 K/mm3 (0.9-3.2); Lymphocytes Percent Auto 41.7 % (18.3-44.2); Mean Corpuscular HGB Conc 33.8 g/dl (32-36); Mean Corpuscular Hemoglobin 31.9 pg (26-34); Mean Corpuscular Volume 94.4 fl (80-100); Mean Platelet Volume 10.6 fl (7.4-10.4); Monocytes Absolute Auto 0.6 K/mm3 (0.1-0.6); Monocytes Percent Auto 8.9 % (2.6-8.5); Neutrophils Absolute Auto 3.2 K/mm3 (1.3-6.7); Platelet Count Result 211 k/mm3 (150-375); Red Blood Count 4.45 M/mm3 (4.6-6.20); Red Cell Distribution Width 13.4 % (11.5-14.5); White Blood Count 6.9 K/mm3 (4.5-10.0)
[2024-02-14 09:25] LABS: Alanine Aminotransferase 42 U/L (6-50); Albumin Level 4.2 g/dL (3.5-5.1); Alkaline Phosphatase 52 U/L (38-126); Anion Gap 2 mmol/L (4-12); Aspartate Amino Transferase 33 U/L (17-59); Bilirubin,Total 0.9 mg/dL (0.2-1.3); Blood Urea Nitrogen 18 mg/dL (9-20); Calcium 8.2 mg/dL (8.4-10.2); Carbon Dioxide 28 mmol/L (22-30); Chloride 105 mmol/L (98-107); Cholesterol 124 mg/dL (0-200); Estimated Glomerular Filt Rate > 60; Glucose 93 mg/dL (65-110); HDL Direct 33 mg/dL; Potassium 4.2 mmol/L (3.4-5.0); Sodium 135 mmol/L (137-145); Triglycerides 166 mg/dL (<150)
[2024-02-14 09:37] LABS: LDL Cholesterol Direct 31 mg/dL
[2024-02-14 09:55] LABS: Prostate Specific Antigen 3.7 ng/mL (< OR = 4.0)
== END 2024-02-14 08:06 | disposition home or self-care (01) ==
LOC: ANHLAB 08:07
PROVIDERS: PCP Family Medicine; Visit Provider Nurse Practitioner Family
DX: Z13.220 Encounter for screening for lipoid disorders (principal); Z12.5 Encounter for screening for malignant neoplasm of prostate; E78.2 Mixed hyperlipidemia; E03.9 Hypothyroidism, unspecified; K57.90 Diverticulosis of intestine, part unspecified, without perforation or abscess without bleeding; F51.01 Primary insomnia
CPT/HCPCS: 36415; 80053; 80061; 84153; 85025; G0103

== ENCOUNTER 2024-02-24 09:51 | Outpatient (CLI) | payer MEDICARE, SELFPAY ==
[2024-02-27 12:37] LABS: Thyroglobulin <0.1 ng/mL; Thyroglobulin Antibodies <1 IU/mL (< or = 1)
== END 2024-02-24 09:52 | disposition home or self-care (01) ==
PROVIDERS: PCP Family Medicine
DX: C73 Malignant neoplasm of thyroid gland (principal)
CPT/HCPCS: 36415; 84432; 86800

== ENCOUNTER 2024-03-23 07:18 | Outpatient (CLI) | payer MEDICARE, SELFPAY ==
--- OUTSIDE RECORDS SUMMARY | 2024-03-23 07:23 | XMS_ITS | Referral Summary ---
Author Organization [facility] Address [address] [facility] [place] [address] Care Team Providers Care Forklift Technician Name Role Phone Rory Hilton MD Primary Care Provider Source Comments [facility],non-owned Affiliates and Associated Physician Practices is amultiple site organization consisting of ambulatory clinics and hospital sitesin [place], [place], [place] and [place]. This disclosure is being madepursuant to the Care Everywhere program and may not contain all information available regarding this patient. Last updated 17.[facility] Social History Tobacco Use Types Packs/Day Years Used Date Smoking Tobacco: Never Assessed Sex and Gender Information Value Date Recorded Sex Assigned at Not on file Gender Identity Not on file Sexual Orientation Not on file Plan of Treatment Not on file Care Teams Forklift Technician Relationship Specialty Start Date End Date Rory Hilton MD [address] [place] [id number] PCP - General 11/02/21
--- OUTSIDE RECORDS SUMMARY | 2024-03-23 07:23 | XMS_ITS | Clinical Summary ---
Author Organization [facility] Address [address] [place] [address] Care Team Providers Care President & Ceo Name Role Phone Rory Hilton MD Primary Care Provider Source Comments [facility],non-owned Affiliates and Associated Physician Practices is amultiple site organization consisting of ambulatory clinics and hospital sitesin [place], [place], [place] and [place]. This disclosure is being madepursuant to the Care Everywhere program and may not contain all information available regarding this patient. Last updated 17.[facility] Social History Tobacco Use Types Packs/Day Years Used Date Smoking Tobacco: Never Assessed Sex and Gender Information Value Date Recorded Sex Assigned at Not on file Gender Identity Not on file Sexual Orientation Not on file Plan of Treatment Health Maintenance Due Date Last Done Comments COLOGUARD (AGES 45-75) - COL ON CA SCREENING 1952 COLON MONITORING 1952 COLONOSCOPY - COLON CA SCREENING 1952 CT COLONOGRAPHY - COLON CA SCREENING 1952 Colorectal Cancer Screening 1952 FIT - COLON CA SCREENING 1952 FLEX SIG - COLON CA SCREENING 1952 LIPID TESTING 1952 HEPATITIS C SCREENING 05/21/1970 DTAP/TDAP/TD VACCINES (1 - Tdap) 05/26/1971 PNEUMOCOCCAL VACCINE 50+ (1 of 1 - PCV) 2002 ZOSTER VACCINE (1 of 2) 2002 COVID-19 VACCINE ( - 2023-2 5 season) 2023 INFLUENZA VACCINE (#1) 2023 DEPRESSION SCREENING 02/12/2024 MEDICARE AWV CALENDAR YEAR 2024 Respiratory Syncytial Virus (RSV) Vaccine Pt: or over 60 yrs (1 - 1-dose 75+ series) 05/26/2027 HEPATITIS B VACCINE Aged Out No longe r eligible based on patient's age to complete this topic HIB VACCINE Aged Out No longer eligi ble based on patient's age to complete this topic HPV VACCINE Aged Out No longer eligi ble based on patient's age to complete this topic MENINGOCOCCAL (Group B) VACCINE Aged Out No longer eligible based on patient's age to complete this topic MENINGOCOCCAL VACCINE Aged Out No jennifer sue eligible based on patient's age to complete this topic Care Teams President & Ceo Relationship Specialty Start Date End Date Rory Hilton MD [address] [place] [id number] PCP - General 11/02/21
--- OUTSIDE RECORDS SUMMARY | 2024-03-23 07:23 | XMS_ITS | Referral Summary ---
Author Organization [facility] [address] [facility] Address [address] [place] [address] Care Team Providers Care Psychology Professor Name Role Phone Mylene Francois MD Unavailable No, Physician Primary Care Provider Encounters Date Type Department Care Team Description 03/11/2024 Telephone [facility] Endocrinology Metabolism and Lipid [address] [facility] Medicine 5th [place] [address] [place] [address] Jigna Collier, clinical lab technologist orders 02/24/2024 Telephone [facility] Endocrinology Metabolism and Lipid [address] [facility] 13th [place] [address] [place] [address] Jigna Collier, RN from Last 3 Months Allergies No known active allergies Medications multivitamin with minerals tablet Take 1 tablet by mouth daily Active scopolamine 1 mg over 3 days patch 3 day ELMA 1 PATCH BEHIND EAR Q 72 HOURS. 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 Will follow up on thyroid levels done locally TSH goal lower normal Assessment & Plan (01/06/2019 2:19 PM EPIC RADIANT ANALYST): Continue current levothyroxine dose. Will check thyroid function test and adjust levothyroxine dose accordingly. Thyroid cancer 10/23/2017 Cancer Staging:Pathologic:Stage I(pT2, pNX, cM0, Age at diagnosis: >= 55 years) - Signed by Hina Odonnell EDGE BEADER on 10/23/2017 Assessment & Plan (02/18/2023 5:24 PM EPIC RADIANT ANALYST): No evidence of tumor recurrence on biochemical and radiological data so far. Will continue annual thyroid function test and tumor markers.- repeat labs today in clinic. Neck US as needed Assessment & Plan (01/23/2022 12:05 PM EPIC RADIANT ANALYST): No evidence of tumor recurrence on biochemical and radiological data so far. Will continue annual thyroid function test and tumor markers.- will follow up on labs completed this year locally Neck US as needed Assessment & Plan (01/09/2021 1:59 PM EPIC RADIANT ANALYST): No evidence of tumor recurrence on biochemical and radiological data so far. Will continue annual thyroid function test and tumor markers.- will follow up on labs completed this year locally Neck US as needed Assessment & Plan (01/05/2020 12:27 PM EPIC RADIANT ANALYST): No evidence of tumor recurrence on biochemical and radiological data so far. Will continue annual thyroid function test and tumor markers. If labs are okay next year will not repeat thyroid ultrasound next year. - (12/30/19): TSH <0.015 , FT4 1.88 - will f/u thyroglobulin level with outside facility (not faxed with TFTs) - will decrease levothyroxine dose from 200 mcg daily to 200 mcg 6 days per week (he still has 100-day supply at home, so preferred to do this instead of changing to 175 mcg tablet at this time). His insurance will be changing to [employer], will need to switch pharmacy to [facility] in February. - recheck TSH and FT4 in 3 months Assessment & Plan (01/06/2019 2:20 PM EPIC RADIANT ANALYST): No evidence of tumor recurrence on biochemical and radiological data so far followed by radiation oncology. Will plan follow-up with thyroid function test Biochemical evaluation with thyroid tumor markers completed this year- will follow in 1 year . We will also obtain neck ultrasound in 1 year as he had NM images this year If above are in acceptable range, will plan follow-up on yearly basis Social History Tobacco Use Types Packs/Day Years Used Date Smoking Tobacco: Never Smokeless Tobacco: Never Tobacco Cessation:Counseling Given: Not Answered Alcohol Use Standard Drinks/Week Comments Yes 0 (1 standard drink = 0.6 oz pur e alcohol) Sex and Gender Information Value Date Recorded Sex Assigned at Not on file Legal Sex Male 2:50 AM EPIC RADIANT ANALYST Gender Identity Male 12/25/2020 10:08 AM EPIC RADIANT ANALYST Sexual Orientation Straight 12/15/2021 11 :25 AM CDT Last Filed Vital Signs Vital Sign Reading Time Taken Comments Blood Pressure 143/94 02/18/2023 11:10 AM EPIC RADIANT ANALYST Pulse 64 02/18/2023 11:10 AM EPIC RADIANT ANALYST Temperature 36.7 C (98.1 F) 02/18/2023 10:38 AM EPIC RADIANT ANALYST Respiratory Rate 18 08/07/2021 1:59 PM CDT Oxygen Saturation 96% 08/07/2021 1:59 PM CDT Inhaled Oxygen Concentration - - Weight 84.4 kg (186 lb) 02/18/2023 10:38 AM EPIC RADIANT ANALYST Height 177.8 cm (5' 10 ) 02/18/2023 10:38 AM EPIC RADIANT ANALYST Body Mass Index 26.69 02/18/2023 10:38 AM EPIC RADIANT ANALYST Plan of Treatment Not on file Procedures Procedure Name Priority Date/Time Associated Diagnosis Comments THYROGLOBULIN ANTIBODIES Routine 025 6:58 AM EPIC RADIANT ANALYST Thyroid cancer (HCC) THYROGLOBULIN Routine 02/24/2024 6:58 AM EPIC RADIANT ANALYST Thyroid cancer (HCC) from Last 3 Months Results * Thyroglobulin antibodies (02/24/2024 6:58 AM EPIC RADIANT ANALYST) Blood Mark Calvin MD LAB BLOOD ORDERABLES Edited Res ult - Final Performing Organization Address [facility]/ZIP Co de Phone Number EXTERNAL LAB * Thyroglobulin (02/24/2024 6:58 AM EPIC RADIANT ANALYST) Blood Mark Calvin MD LAB BLOOD ORDERABLES Final Resu lt EXTERNAL LAB from Last 3 Months Insurance [email or web address] [facility] AETNA MEDICARE [email or web address] [facility] MEDICARE SOLUT[employer] AETNA MEDICARE Care Teams Psychology Professor Relationship Specialty Start Date End Date No, Physician PCP - General 01/23/22 Mylene Francois MD Radiation Oncologist Radiation Oncology 10/23/17
--- OUTSIDE RECORDS SUMMARY | 2024-03-23 07:23 | XMS_ITS | Clinical Summary ---
Author Organization [facility] [address] [facility] Address [address] [place] [address] Care Team Providers Care Chemical Strength Tester Name Role Phone Mylene Francois MD Unavailable [phone] No, Physician Primary Care Provider [phone] Allergies No known active allergies Medications multivitamin [...] 01/06/2019 Assessment & Plan (02/18/2023 5:24 PM WORM FARMER): Continue levothyroxine dose at 150 mcg every day Will follow up on thyroid levels done today TSH goal lower normal Assessment & Plan (01/23/2022 12:05 PM WORM FARMER): Lower levothyroxine dose to 150 mcg every day Will follow up on thyroid levels done locally TSH goal lower normal Assessment & Plan (01/09/2021 1:58 PM WORM FARMER): Continue current levothyroxine dose. Will follow up on thyroid levels done locally TSH goal lower normal Assessment & Plan (01/06/2019 2:19 PM WORM FARMER): Continue current levothyroxine dose. Will check thyroid function test and adjust levothyroxine dose accordingly. Thyroid cancer 10/23/2017 Cancer Staging:Pathologic:Stage I(pT2, pNX, cM0, Age at diagnosis: >= 55 years) - Signed by Hina Odonnell PLATEN PRESS FEEDER on 10/23/2017 Assessment & Plan (02/18/2023 5:24 PM WORM FARMER): No evidence of tumor recurrence on biochemical and radiological data so far. Will continue annual thyroid function test and tumor markers.- repeat labs today in clinic. Neck US as needed Assessment & Plan (01/23/2022 12:05 PM WORM FARMER): No evidence of tumor recurrence on biochemical and radiological data so far. Will continue annual thyroid function test and tumor markers.- will follow up on labs completed this year locally Neck US as needed Assessment & Plan (01/09/2021 1:59 PM WORM FARMER): No evidence of tumor recurrence on biochemical and radiological data so far. Will continue annual thyroid function test and tumor markers.- will follow up on labs completed this year locally Neck US as needed Assessment & Plan (01/05/2020 12:27 PM WORM FARMER): No evidence of tumor recurrence on biochemical [...] time). His insurance will be changing to [employer], will need to switch pharmacy to [facility] in February. - recheck TSH and FT4 in 3 months Assessment & Plan (01/06/2019 2:20 PM WORM FARMER): No evidence of tumor recurrence on biochemical [...] range, will plan follow-up on yearly basis Encounters Date Type Department Care Team Description 03/11/2024 Telephone [facility] Endocrinology Metabolism and Lipid [address] [facility] [place] 5th [place] [address] [place] [address] Jigna Collier, clinical laboratory aides teacher orders 02/24/2024 Telephone [facility] Endocrinology Metabolism and Lipid [address] [facility] 13th [place] [address] [place] [address] Jigna Collier, RN from Last 3 Months Surgical History Surgery Date Site/Laterality Comments THYROID SURGERY 02/11/2015 - 02/11/2016 Medical History Medical History Date Comments Hx Other Medical dyslipidemia Family History Medical History Relation Name Comments Coronary artery disease Father Helena nary Artery Bypass Graft; Heart disease Father Stent Father Coronary Stent Placement; Hyperlipidemia Mother Stent Mother Coronary Stent Placement; Thyroid disease Mother Thyroid disease Sister Vitamin D deficiency Son Relation Name Status Comments Father Alive Mother Alive Other son Alive Sister Son Social History Tobacco Use Types Packs/Day Years Used Date Smoking Tobacco: Never Smokeless Tobacco: Never Tobacco Cessation:Counseling Given: Not Answered Alcohol Use Standard Drinks/Week Comments Yes 0 (1 standard drink = 0.6 oz pur e alcohol) Sex and Gender Information Value Date Recorded Sex Assigned at Not on file Legal Sex Male 2:50 AM WORM FARMER Gender Identity Male 12/25/2020 10:08 AM WORM FARMER Sexual Orientation Straight 12/15/2021 11 :25 AM CDT Obstetrics History Last Filed Vital Signs Vital Sign Reading Time Taken Comments Blood Pressure 143/94 02/18/2023 11:10 AM WORM FARMER Pulse 64 02/18/2023 11:10 AM WORM FARMER Temperature 36.7 C (98.1 F) 02/18/2023 10:38 AM WORM FARMER Respiratory Rate 18 08/07/2021 1:59 PM CDT Oxygen Saturation 96% 08/07/2021 1:59 PM CDT Inhaled Oxygen Concentration - - Weight 84.4 kg (186 lb) 02/18/2023 10:38 AM WORM FARMER Height 177.8 cm (5' 10 ) 02/18/2023 10:38 AM WORM FARMER Body Mass Index 26.69 02/18/2023 10:38 AM WORM FARMER Plan of Treatment Health Maintenance Due Date Last Done Comments Colon Cancer Screening-Colonoscopy 1950 Depression Screening 1950 Fall Risk Assessment 1950 Hepatitis C Screening 1950 DTaP/Tdap/Td Vaccine (1 - Tdap) 05/26/1963 Hepatitis B Screening 1970 Abdominal Aortic Aneurysm (A AA) Screen 2017 Well Visit 65+ 2017 Covid-19 Vaccine (4 2023-2 5 season) 2023 11/06/2020, 04/17/2020, 03/20/2020 Influenza Vaccine (#1) 2023 , 10/15/2019, 11/21/2017, Additional history exists Zoster Vaccine Completed 01/22/2019, 11/07/2018 Pneumococcal vaccine 65+ Completed 10/16/2019, 10/13 Procedures Procedure Name Priority Date/Time Associated Diagnosis Comments THYROGLOBULIN ANTIBODIES Routine 025 6:58 AM WORM FARMER Thyroid cancer (HCC) THYROGLOBULIN Routine 02/24/2024 6:58 AM WORM FARMER Thyroid cancer (HCC) from Last 3 Months Results * Thyroglobulin antibodies (02/24/2024 6:58 AM WORM FARMER) Blood us Mark Calvin MD LAB BLOOD ORDERABLES Edited Res ult - Final EXTERNAL LAB * Thyroglobulin (02/24/2024 6:58 AM WORM FARMER) Blood Mark Calvin MD LAB BLOOD ORDERABLES Final Resu lt EXTERNAL LAB from Last 3 Months Insurance [facility] AETNA MEDICARE [facility] MEDIC[facility] Care Teams Chemical Strength Tester Relationship Specialty Start Date End Date No, Physician PCP - General 01/23/22 Mylene Francois MD Radiation Oncologist Radiation Oncology 10/23/17
--- OUTSIDE RECORDS SUMMARY | 2024-03-23 07:24 | XMS_ITS | Patient Health Summary ---
Author Organization [facility] Address [address] [facility] [place] [address] Care Team Providers Care Crayon Sorting Machine Feeder Name Role Phone Rory Hilton MD Primary Care Provider Note from [facility],non-owned Affiliates and Associated Physician Practices is amultiple site organization consisting of ambulatory clinics and hospital sitesin [place], [place], [place] and [place]. This disclosure is being madepursuant to the Care Everywhere program and may not contain all information available regarding this patient. Last updated 17.[facility] Social History Tobacco Use Types Packs/Day Years Used Date Smoking Tobacco: Never Assessed Sex and Gender Information Value Date Recorded Sex Assigned at Not on file Gender Identity Not on file Sexual Orientation Not on file Procedures * DERMATOPATHOLOGY(Performed 11/01/2021) Results * DERMATOPATHOLOGY (11/01/2021 12:00 AM CDT) Case Report Dermatopathology Report Case: [id number] Authorizing Provider: Usman Hilton MD Collected: 11/01/2021 12:00 AM Ordering Location: [facility] DermPath Lab Received: 11/02/2021 05:24 PM Pathologist: Marifer Iyer MD Specimen: Skin, right cheek 2 1:00 PM CDT DERMATOPATHOLOGY LABORATORY Final Diagnosis Specimen A. SKIN, right cheek: BASAL CELL CARCINOMA, NODULAR TYPE (C44.319) 2 1:00 PM CDT DERMATOPATHOLOGY LABORATORY Clinical History R/O BCC 2 1:00 PM CDT DERMATOPATHOLOGY LABORATORY Gross Description Specimen A: Received is one formalin filled container labeled with the patient's name and designated right cheek. The specimen consists of a shave biopsy measuring 6x6x1 and 4x4x1 mm. Jar 0. 2 1:00 PM CDT DERMATOPATHOLOGY LABORATORY Microscopic Description Specimen A. SKIN, right cheek: Within the dermis there are aggregates of basaloid cells with a high nuclear to cytoplasmic ratio and peripheral palisading. 2 1:00 PM CDT DERMATOPATHOLOGY LABORATORY Disclaimer An external and internal positive and negative controls are appropriate for the histochemical, immunohistochemical and immunofluorescence stain(s) in this case (if any), except where stated explicitly. The performance characteristics of the stain(s) cited in this report were developed and its performance characteristic determined by the Dermatopathology Laboratory at [facility], directed by Dr. Nicci Lyman. These tests need not be, and therefore are not, approved by the [place] Food and Drug Administration. The tests are used for clinical purposes. Billing Codes Specimen Charges Stain Charges 77575 1 2 1:00 PM CDT DERMATOPATHOLOGY LABORATORY Embedded Images 2 1:00 PM CDT DERMATOPATHOLOGY LABORATORY Pathology/Cytolog y TISSUE SPECIMEN FROM SKIN / Unknown 11/01/2021 11/02/2021 5:24 PM CDT Usman Hilton MD LAB - PATHOLOGY/CYTO LOGY ORDERABLES DERMATOPATHOLOGY LABORATORY [facility] - Department of Dermatology [address], [address] [phone] Care Teams Crayon Sorting Machine Feeder Relationship Specialty Start Date End Date Rory Hilton MD [address] [place] [phone] PCP - General 11/02/21
--- OUTSIDE RECORDS SUMMARY | 2024-03-23 07:24 | XMS_ITS | Encounter Summary ---
Author Organization [facility] Address [address] [facility] [place] [address] Care Team Providers Care Window Draper Name Role Phone Rory Hilton MD Primary Care Provider Encounter Details Date Type Department Care Team (Late st Contact Info) Description 11/02/2021 Lab Requisition [facility] DermPath Lab [address] [place] [id number] Usman Hilton MD [address] [place], [place] [phone] Social History Tobacco Use Types Packs/Day Years Used Date Smoking Tobacco: Never Assessed Sex and Gender Information Value Date Recorded Sex Assigned at Not on file Gender Identity Not on file Sexual Orientation Not on file documented as of this encounter Plan of Treatment Not on file documented as of this encounter Procedures Procedure Name Priority Date/Time Associated Diagnosis Comments DERMATOPATHOLOGY Routine 11/01/2021 12:0 0 AM CDT documented in this encounter Results * DERMATOPATHOLOGY (11/01/2021 12:00 AM CDT) Case Report Dermatopathology Report Case: [id number] Authorizing Provider: Usman Hilton MD Collected: 11/01/2021 12:00 AM Ordering Location: [facility] DermPath Lab Received: 11/02/2021 05:24 PM Pathologist: [...] characteristic determined by the Dermatopathology Laboratory at [facility], directed by Dr. Nicci Lyman. These tests need not be, and therefore are not, approved by the [place] Food and Drug Administration. The tests are used for clinical purposes. Billing Codes Specimen Charges Stain Charges 89832 1 2 1:00 PM CDT DERMATOPATHOLOGY LABORATORY Embedded Images 2 1:00 PM CDT DERMATOPATHOLOGY LABORATORY Pathology/Cytolog y TISSUE SPECIMEN FROM SKIN / Unknown 11/01/2021 11/02/2021 5:24 PM CDT Usman Hilton MD LAB - PATHOLOGY/CYTO LOGY ORDERABLES DERMATOPATHOLOGY LABORATORY [facility] - Department of Dermatology [facility] Medicine [address] [place] [address], [address] [phone] documented in this encounter Visit Diagnoses Not on filedocumented in this encounter Care Teams Window Draper Relationship Specialty Start Date End Date Rory Hilton MD [address] [place] [phone] PCP - General 11/02/21 documented as of this encounter
== END 2024-03-23 07:19 | disposition home or self-care (01) ==
PROVIDERS: PCP Family Medicine
DX: C73 Malignant neoplasm of thyroid gland (principal)
CPT/HCPCS: 36415; 84443

== ENCOUNTER 2024-03-27 13:42 | Emergency (ER) | payer MEDICARE, SELFPAY ==
--- NOTE | ~2024-03-27 | XR_ITS ---
EXAMINATION: XR chest 2V 03/27/2024 14:23 INDICATION: Cough and right-sided chest discomfort PROCEDURE: 2 view chest COMPARISON: Comparison to multiple prior studies sequentially, with oldest reviewed study dated 11/11. FINDINGS: The lungs are clear. The cardiomediastinal silhouette is within normal limits. There are no pleural effusions. There is no pneumothorax suspected. IMPRESSION: 1: NO ACUTE CARDIOPULMONARY DISEASE. Reviewed, dictated and finalized at location B. WORK SUPERVISOR
--- OUTSIDE RECORDS SUMMARY | 2024-03-27 13:50 | XMS_ITS | Encounter Summary ---
Author Organization [facility] Address [address] [facility] [place] [address] Care Team Providers Care Director Mission Name Role Phone Rory Hilton MD Primary Care Provider Encounter Details Date Type Department Care Team (Late st Contact Info) Description 11/02/2021 Lab Requisition [facility] DermPath Lab [address] [place] [phone] Usman Hilton MD [address] [place], [place] [phone] Social History Tobacco Use Types Packs/Day Years [...] AM CDT) Case Report Dermatopathology Report Case: [id number] Authorizing Provider: Usman Hilton MD Collected: 11/01/2021 12:00 AM Ordering Location: [facility] DermPath Lab Received: 11/02/2021 05:24 PM Pathologist: [...] characteristic determined by the Dermatopathology Laboratory at [facility], directed by Dr. Nicci Lyman. These tests need not be, and therefore are not, approved by the [place] Food and Drug Administration. The tests are used for clinical purposes. Billing Codes Specimen Charges Stain Charges 41501 1 2 1:00 PM CDT DERMATOPATHOLOGY LABORATORY Embedded Images 2 1:00 PM CDT DERMATOPATHOLOGY LABORATORY Pathology/Cytolog y TISSUE SPECIMEN FROM SKIN / Unknown 11/01/2021 11/02/2021 5:24 PM CDT Usman Hilton MD LAB - PATHOLOGY/CYTO LOGY ORDERABLES DERMATOPATHOLOGY LABORATORY [facility] - Department of Dermatology [facility] Medicine [address] [place] [address], [address]rd Floor [address] [phone] documented in this encounter Visit Diagnoses Not on filedocumented in this encounter Care Teams Director Mission Relationship Specialty Start Date End Date Rory Hilton MD [address] [place] [id number] PCP - General 11/02/21 documented as of this encounter
--- OUTSIDE RECORDS SUMMARY | 2024-03-27 13:50 | XMS_ITS | Referral Summary ---
Author Organization [facility] [address] [facility] Address [address] [place] [address] Care Team Providers Care Registered Radiographer Name Role Phone Mylene Francois MD Unavailable [phone] No, Physician Primary Care Provider [phone] Encounters Date Type Department Care Team Description 03/24/2024 9:40 AM IMPLANT POLISHER Office Visit [facility] Endocrinology Metabolism and Lipid [address] [facility] [address], [address] [place] [phone] Mark Calvin MD Thyroid cancer (HCC) (Primary Dx); Post-surgical hypothyroidism 03/11/2024 Telephone [facility] Endocrinology Metabolism and Lipid [address] [facility] 5th [place] [address] [place] [phone] Jigna Collier laundry laborer orders 02/24/2024 Telephone [facility] Endocrinology Metabolism and Lipid [address] [facility] 13th [place] [address] [place] [address] Jigna Collier, RN from Last 3 Months [...] Date Post-surgical hypothyroidism 01/06/2019 Assessment & Plan (03/24/2024 11:40 AM IMPLANT POLISHER): Continue current levothyroxine dose. Will check thyroid function test and adjust levothyroxine dose accordingly. TSH goal lower normal Assessment & Plan (02/18/2023 5:24 PM IMPLANT POLISHER): Continue levothyroxine dose at 150 mcg every day Will follow up on thyroid levels done today TSH goal lower normal Assessment & Plan (01/23/2022 12:05 PM IMPLANT POLISHER): Lower levothyroxine dose to 150 mcg every day Will follow up on thyroid levels done locally TSH goal lower normal Assessment & Plan (01/09/2021 1:58 PM IMPLANT POLISHER): Continue current levothyroxine dose. Will follow up on thyroid levels done locally TSH goal lower normal Assessment & Plan (01/06/2019 2:19 PM IMPLANT POLISHER): Continue current levothyroxine dose. Will check thyroid function test and adjust levothyroxine dose accordingly. Thyroid cancer 10/23/2017 Cancer Staging:Pathologic:Stage I(pT2, pNX, cM0, Age at diagnosis: >= 55 years) - Signed by Hina Odonnell NP on 10/23/2017 Assessment & Plan (03/24/2024 11:40 AM IMPLANT POLISHER): No evidence of tumor recurrence on biochemical and radiological data so far. Will continue annual thyroid function test and tumor markers.- will follow up on labs completed this year locally Neck US as needed Assessment & Plan (02/18/2023 5:24 PM IMPLANT POLISHER): No evidence of tumor recurrence on biochemical and radiological data so far. Will continue annual thyroid function test and tumor markers.- repeat labs today in clinic. Neck US as needed Assessment & Plan (01/23/2022 12:05 PM IMPLANT POLISHER): No evidence of tumor recurrence on biochemical and radiological data so far. Will continue annual thyroid function test and tumor markers.- will follow up on labs completed this year locally Neck US as needed Assessment & Plan (01/09/2021 1:59 PM IMPLANT POLISHER): No evidence of tumor recurrence on biochemical and radiological data so far. Will continue annual thyroid function test and tumor markers.- will follow up on labs completed this year locally Neck US as needed Assessment & Plan (01/05/2020 12:27 PM IMPLANT POLISHER): No evidence of tumor recurrence on biochemical [...] time). His insurance will be changing to [employer], will need to switch pharmacy to [facility] in February. - recheck TSH and FT4 in 3 months Assessment & Plan (01/06/2019 2:20 PM IMPLANT POLISHER): No evidence of tumor recurrence on biochemical [...] on file Legal Sex Male 2:50 AM IMPLANT POLISHER Gender Identity Male 12/25/2020 10:08 AM IMPLANT POLISHER Sexual Orientation Straight 12/15/2021 11 :25 AM CDT Last Filed Vital Signs Vital Sign Reading Time Taken Comments Blood Pressure 166/91 03/24/2024 9:29 AM IMPLANT POLISHER anx iety Pulse 92 03/24/2024 9:29 AM IMPLANT POLISHER Temperature 36.7 C (98.1 F) 03/24/2024 9:29 AM IMPLANT POLISHER Respiratory Rate 17 03/24/2024 9:29 AM IMPLANT POLISHER Oxygen Saturation 98% 03/24/2024 9:29 AM IMPLANT POLISHER Inhaled Oxygen Concentration - - Weight 83.6 kg (184 lb 3.2 oz) 03/24/2024 9:29 A M IMPLANT POLISHER Height 177.8 cm (5' 10 ) 03/24/2024 9:29 AM IMPLANT POLISHER Body Mass Index 26.43 03/24/2024 9:29 AM IMPLANT POLISHER Plan of Treatment Not on file Procedures Procedure Name Priority Date/Time Associated Diagnosis Comments THYROGLOBULIN ANTIBODIES Routine 025 6:58 AM IMPLANT POLISHER Thyroid cancer (HCC) THYROGLOBULIN Routine 02/24/2024 6:58 AM IMPLANT POLISHER Thyroid cancer (HCC) from Last 3 Months Results * Thyroglobulin antibodies (02/24/2024 6:58 AM IMPLANT POLISHER) Blood us Mark Calvin MD LAB BLOOD ORDERABLES Edited Res ult - Final EXTERNAL LAB * Thyroglobulin (02/24/2024 6:58 AM IMPLANT POLISHER) Blood us Mark Calvin MD LAB BLOOD ORDERABLES Final Resu lt EXTERNAL LAB from Last 3 Months Insurance [facility] [employer] MEDICARE [facility] MED[facility] [place] [place] Address: [address] [address] [place] [address] [facility] MEDIC[facility] Care Teams Registered Radiographer Relationship Specialty Start Date End Date No, Physician PCP - General 01/23/22 Mylene Francois MD Radiation Oncologist Radiation Oncology 10/23/17
--- OUTSIDE RECORDS SUMMARY | 2024-03-27 13:50 | XMS_ITS | Clinical Summary ---
Author Organization [facility] Address [address] [place] [address] Care Team Providers Care Geriatric Aide Name Role Phone Rory Hilton MD Primary Care Provider Source Comments [facility],non-owned Affiliates and Associated Physician Practices is amultiple site organization consisting of ambulatory clinics and hospital sitesin [place], [place], [place] and [place]. This disclosure is being madepursuant to the Care Everywhere program and may not contain all information available regarding this patient. Last updated 17.[facility] Social History Tobacco Use Types Packs/Day Years [...] age to complete this topic Care Teams Geriatric Aide Relationship Specialty Start Date End Date Rory Hilton MD [address] [place] [id number] PCP - General 11/02/21
--- OUTSIDE RECORDS SUMMARY | 2024-03-27 13:50 | XMS_ITS | Patient Health Summary ---
Author Organization [facility] Address [address] [facility] [place] [address] Care Team Providers Care Psychiatric Aide Instructor Name Role Phone Rory Hilton MD Primary Care Provider [phone] [facility],non-owned Affiliates and Associated Physician Practices is amultiple site organization consisting of ambulatory clinics and hospital sitesin [place], [place], [place] and [place]. This disclosure is being madepursuant to the Care Everywhere program and may not contain all information available regarding this patient. Last updated 17.[facility] Social History Tobacco Use Types Packs/Day Years Used Date Smoking Tobacco: Never Assessed Sex and Gender Information Value Date Recorded Sex Assigned at Not on file Gender Identity Not on file Sexual Orientation Not on file Procedures * DERMATOPATHOLOGY(Performed 11/01/2021) Results * DERMATOPATHOLOGY (11/01/2021 12:00 AM CDT) Case Report Dermatopathology Report Case: [id number] Authorizing Provider: Usman Hilton MD Collected: 11/01/2021 12:00 AM Ordering Location: [facility] DermPath Lab Received: 11/02/2021 05:24 PM [...] characteristic determined by the Dermatopathology Laboratory at [facility], directed by Dr. Nicci Lyman. These tests need not be, and therefore are not, approved by the [place] Food and Drug Administration. The tests are used for clinical purposes. Billing Codes Specimen Charges Stain Charges 39594 1 2 1:00 PM CDT DERMATOPATHOLOGY LABORATORY Embedded Images 2 1:00 PM CDT DERMATOPATHOLOGY LABORATORY Pathology/Cytolog y TISSUE SPECIMEN FROM SKIN / Unknown 11/01/2021 11/02/2021 5:24 PM CDT Usman Hilton MD LAB - PATHOLOGY/CYTO LOGY ORDERABLES DERMATOPATHOLOGY LABORATORY [facility] - Department of Dermatology [address], 3rd Floor [address] [phone] Care Teams Psychiatric Aide Instructor Relationship Specialty Start Date End Date Rory Hilton MD [address] [place] [id number] PCP - General 11/02/21
--- OUTSIDE RECORDS SUMMARY | 2024-03-27 13:50 | XMS_ITS | Referral Summary ---
Author Organization [facility] Address [address] [facility] [place] [address] Care Team Providers Care Mobile Home Park Manager Name Role Phone Rory Hilton MD Primary Care Provider [phone] Source Comments [facility],non-owned Affiliates and Associated Physician Practices is amultiple site organization consisting of ambulatory clinics and hospital sitesin [place] and [place]. This disclosure is being madepursuant to the Care Everywhere program and may not contain all information available regarding this patient. Last updated 17.[facility] Social History Tobacco Use Types Packs/Day Years Used Date Smoking Tobacco: Never Assessed Sex and Gender Information Value Date Recorded Sex Assigned at Not on file Gender Identity Not on file Sexual Orientation Not on file Plan of Treatment Not on file Care Teams Mobile Home Park Manager Relationship Specialty Start Date End Date Rory Hilton MD [address] [place] [id number] PCP - General 11/02/21
--- OUTSIDE RECORDS SUMMARY | 2024-03-27 13:50 | XMS_ITS | Clinical Summary ---
Author Organization [facility] [address] [facility] Address [address] [place] [address] Care Team Providers Care Elementary School Band Director Name Role Phone Mylene Francois MD Unavailable [phone] No, Physician Primary Care Provider [phone] Allergies No known active allergies Medications multivitamin [...] 01/06/2019 Assessment & Plan (03/24/2024 11:40 AM BATTERY FILLER): Continue current levothyroxine dose. Will check thyroid function test and adjust levothyroxine dose accordingly. TSH goal lower normal Assessment & Plan (02/18/2023 5:24 PM BATTERY FILLER): Continue levothyroxine dose at 150 mcg every day Will follow up on thyroid levels done today TSH goal lower normal Assessment & Plan (01/23/2022 12:05 PM BATTERY FILLER): Lower levothyroxine dose to 150 mcg every day Will follow up on thyroid levels done locally TSH goal lower normal Assessment & Plan (01/09/2021 1:58 PM BATTERY FILLER): Continue current levothyroxine dose. Will follow up on thyroid levels done locally TSH goal lower normal Assessment & Plan (01/06/2019 2:19 PM BATTERY FILLER): Continue current levothyroxine dose. Will check thyroid function test and adjust levothyroxine dose accordingly. Thyroid cancer 10/23/2017 Cancer Staging:Pathologic:Stage I(pT2, pNX, cM0, Age at diagnosis: >= 55 years) - Signed by Hina Odonnell NP on 10/23/2017 Assessment & Plan (03/24/2024 11:40 AM BATTERY FILLER): No evidence of tumor recurrence on biochemical and radiological data so far. Will continue annual thyroid function test and tumor markers.- will follow up on labs completed this year locally Neck US as needed Assessment & Plan (02/18/2023 5:24 PM BATTERY FILLER): No evidence of tumor recurrence on biochemical and radiological data so far. Will continue annual thyroid function test and tumor markers.- repeat labs today in clinic. Neck US as needed Assessment & Plan (01/23/2022 12:05 PM BATTERY FILLER): No evidence of tumor recurrence on biochemical and radiological data so far. Will continue annual thyroid function test and tumor markers.- will follow up on labs completed this year locally Neck US as needed Assessment & Plan (01/09/2021 1:59 PM BATTERY FILLER): No evidence of tumor recurrence on biochemical and radiological data so far. Will continue annual thyroid function test and tumor markers.- will follow up on labs completed this year locally Neck US as needed Assessment & Plan (01/05/2020 12:27 PM BATTERY FILLER): No evidence of tumor recurrence on biochemical [...] time). His insurance will be changing to [employer], will need to switch pharmacy to [facility] in February. - recheck TSH and FT4 in 3 months Assessment & Plan (01/06/2019 2:20 PM BATTERY FILLER): No evidence of tumor recurrence on biochemical [...] Department Care Team Description 03/24/2024 9:40 AM BATTERY FILLER Office Visit [facility] Endocrinology Metabolism and Lipid [address] [facility] Floor 1, [address] [place] [phone] Mark Calvin MD Thyroid cancer (HCC) (Primary Dx); Post-surgical hypothyroidism 03/11/2024 Telephone [facility] Endocrinology Metabolism and Lipid [address] [facility] 5th [place] [address] [place] [phone] Jigna Collier RN lab orders 02/24/2024 Telephone [facility] Endocrinology Metabolism and Lipid [address] [facility] 13th [place] [address] [place] [address] Jigna Collier RN from Last 3 Months Surgical History [...] on file Legal Sex Male 2:50 AM BATTERY FILLER Gender Identity Male 12/25/2020 10:08 AM BATTERY FILLER Sexual Orientation Straight 12/15/2021 11 :25 AM CDT Obstetrics History Last Filed Vital Signs Vital Sign Reading Time Taken Comments Blood Pressure 166/91 03/24/2024 9:29 AM BATTERY FILLER anx iety Pulse 92 03/24/2024 9:29 AM BATTERY FILLER Temperature 36.7 C (98.1 F) 03/24/2024 9:29 AM BATTERY FILLER Respiratory Rate 17 03/24/2024 9:29 AM BATTERY FILLER Oxygen Saturation 98% 03/24/2024 9:29 AM BATTERY FILLER Inhaled Oxygen Concentration - - Weight 83.6 kg (184 lb 3.2 oz) 03/24/2024 9:29 A M BATTERY FILLER Height 177.8 cm (5' 10 ) 03/24/2024 9:29 AM BATTERY FILLER Body Mass Index 26.43 03/24/2024 9:29 AM BATTERY FILLER Plan of Treatment Health Maintenance Due Date Last Done Comments Colon Cancer Screening-Colonoscopy 1950 Depression Screening 1950 Fall Risk Assessment 1950 Hepatitis C Screening 1950 DTaP/Tdap/Td Vaccine (1 - Tdap) 05/26/1963 Hepatitis B Screening 1970 Well Visit 65+ 2017 Covid-19 Vaccine ( - 2023-2 5 season) 2023 11/06/2020, 04/17/2020, 03/20/2020 Influenza Vaccine (#1) 2023 , 10/15/2019, 11/21/2017, Additional history exists Zoster Vaccine Completed 01/22/2019, 11/07/2018 Pneumococcal vaccine 65+ Completed 10/16/2019, 10/13 Procedures Procedure Name Priority Date/Time Associated Diagnosis Comments THYROGLOBULIN ANTIBODIES Routine 025 6:58 AM BATTERY FILLER Thyroid cancer (HCC) THYROGLOBULIN Routine 02/24/2024 6:58 AM BATTERY FILLER Thyroid cancer (HCC) from Last 3 Months Results * Thyroglobulin antibodies (02/24/2024 6:58 AM BATTERY FILLER) Blood Mark Calvin MD LAB BLOOD ORDERABLES Edited Res ult - Final Performing Organization Address [facility]/State/ZIP Co de Phone Number EXTERNAL LAB * Thyroglobulin (02/24/2024 6:58 AM BATTERY FILLER) Blood Mark Calvin MD LAB BLOOD ORDERABLES Final Resu lt Performing Organization Address [facility]/State/ZIP Co de Phone Number EXTERNAL LAB from Last 3 Months Insurance [employer] [facility] MEDIC[facility] Address: [address] [place] [address] [employer] [facility] Address: [facility] [id number] [place] [address] Care Teams Elementary School Band Director Relationship Specialty Start Date End Date No, Physician PCP - General 01/23/22 Mylene Francois MD Radiation Oncologist Radiation Oncology 10/23/17
[2024-03-27 13:56] VITALS: BP 139/66; PULSE 80; RESP 15; TEMP 36.2; O2SAT 98
--- NOTE | 2024-03-27 14:13 | ED.URI ---
HPI - URI/Sore Throat General Chief Complaint: Upper Respiratory Infection Stated Complaint: cough Time Seen by Provider: 03/27/24 13:43 Source: patient Mode of arrival: ambulatory Limitations: no limitations History of Present Illness HPI Narrative: Ramiro is a 73-year-old male patient presenting to the clinic today with complaints of cough and chest congestion he reports he is having some right-sided chest discomfort with cough. He does report a low-grade fever. States symptoms started yesterday with some sinus drainage the back of his throat woke up this morning with a nonproductive cough. Denies any shortness of breath. MD elicited complaint: fever, cough and nasal congestion Related Data Home Medications ?Medication ?Instructions ?Recorded ?Confirmed ?Last Taken ?Type aspirin 81 mg tablet,delayed 81 mg PO DAILY 02/26/20 06/06/23 Unknown History release levothyroxine 25 mcg tablet 12.5 mcg PO DAILY 02/26/20 06/06/23 Unknown History (Synthroid) multivitamin 1 tablet PO DAILY 02/26/20 06/06/23 Unknown History Allergies Allergy/AdvReac Type Severity Reaction Status Date / Time No Known Allergies Allergy Verified 03/27/24 14:08 Review of Systems Review of Systems: Pertinent positives per HPI. Patient denies any fever, chills, rash, headache, visual changes, dizziness, cough, shortness of breath, chest pain, palpitations, nausea, vomiting, diarrhea, constipation, abdominal pain, or any urinary issues. [facility] Past Medical History Medical History Tremor Numbness and tingling in right hand Osteoarthritis of first carpometacarpal joint of left hand Pain of left thumb Medial meniscus tear Left knee pain Left medial knee pain BMI 27.0-27.9,adult Basal cell carcinoma, face BPH (benign prostatic hyperplasia) Prostate enlargement Colon cancer screening Rib pain on left side Upper abdominal pain Cholelithiasis Upper abdominal pain LUQ abdominal pain Screening for prostate cancer BMI 25.0-25.9,adult Insomnia Hypothyroidism Mixed hyperlipidemia BMI 26.0-26.9,adult Diverticul disease small and large intestine, no perforati or abscess Surgical History Surgical History H/O thyroidectomy History of tonsillectomy Family History Family History Father Mother Sibling No problems noted. Other Family history of elevated blood lipids Family history of thyroid disease Hypertension Social History Social History Smoking status: Never smoker Second hand tobacco smoke exposure: No Alcohol intake: current Substance use: never Substance use type: does not use Do You Feel Safe in your Home?: Yes Lack of Transportation: No Lack of Food: Never True Current Housing: I Have Housing Concerned About Future Housing: No Difficulty Paying Gas/Electric Bills: No Difficulty Paying for Meds: No Currently Unemployed: No Education: Bachelor's Degree Difficulty w/ Childcare or Family Care: No Living arrangements: with family Occupation/Education: retired 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 Gender identity (if verbalized by the patient): Male Spiritual care concerns: No Comments At the time of my signature, I reviewed and agree with the nursing past medical, surgical, social, and family history. There is no relevant family history pertinent to the patient complaint. Exam Narrative: General: Well-developed, well nourished, in no apparent distress Head: Normocephalic, atraumatic Eyes: Pupils equally round and reactive to light bilaterally, EOM intact, sclera and conjunctive clear, no discharge, lids normal Ears: TMs intact and clear, ear canals clear, no drainage, grossly hearing normal. Nose: Nares patent, clear nasal discharge, no inflammation, no sinus tenderness. Mouth: Oral pharynx without lesions or masses, good dentition, MMM. Neck: Supple, trachea midline, no enlargement of anterior or posterior cervical nodes, no thyroid masses or goiter palpable. Cardio: Regular rate and rhythm, s1 and s2 normal, no murmur appreciated. Resp: Clear to auscultation bilaterally, faint rub sound in posterior lower left lobe, no rhonchi, rales, wheezing Course Course Emergency Course: Portions of this record may have been created with voice recognition software. Level of Care: Express Care Visit Vital Signs Vital signs: Vital Signs Temperature 36.2 C L 03/27/24 13:56 Pulse Rate 80 03/27/24 13:56 Respiratory Rate 15 03/27/24 13:56 Blood Pressure 139/66 03/27/24 13:56 Pulse Oximetry 98 03/27/24 13:56 Oxygen Delivery Room Air 03/27/24 13:56 Temperature 36.2 C L 03/27/24 13:56 Pulse Rate 80 03/27/24 13:56 Respiratory Rate 15 03/27/24 13:56 Blood Pressure 139/66 03/27/24 13:56 Pulse Oximetry 98 03/27/24 13:56 Oxygen Delivery Room Air 03/27/24 13:56 Vital signs reviewed MDM - URI/Sore Throat MDM Narrative Medical decision making narrative: At the time of visit patient is resting comfortably on the exam table. Patient appears to be nontoxic. Labs: COVID and influenza testing was performed and negative in the clinic today Diagnostics: Chest x-rays negative for any acute cardiopulmonary process. Plan: I suspect patient has URI with cough and congestion and pleuritic chest discomfort with inspiration. Prescription for prednisone and Tessalon Perles was sent to the pharmacy. Supportive measures were discussed with the patient and they voiced understanding discharge instructions and agrees to treatment plan. Return precautions reviewed Differential Diagnosis Differential diagnosis: Likely upper respiratory infection, otitis media, sinusitis, viral infection, bronchitis, influenza, pharyngitis and other Imaging Data Radiologist's impression: ITS Impressions Chest X-Ray 03/27/24 14:29 IMPRESSION: 1: NO ACUTE CARDIOPULMONARY DISEASE. Discharge Plan Discharge Clinical Impression: Post-nasal drip URI (upper respiratory infection) Qualifiers: URI type: unspecified URI Qualified Code(s): J06.9 - Acute upper respiratory infection, unspecified Patient Disposition: Home, Self-Care Condition: Stable Instructions: Antibiotic Form, Cold Symptoms (ED), Postnasal Drip (DC) Additional Instructions: Chest x-rays negative for any acute cardiopulmonary process. COVID and influenza testing was negative. Take prescription medications only as prescribed-prednisone and Tessalon Perles Increase fluids and stay well hydrated Tylenol/motrin for pain/fever Flonase and OTC antihistamines as directed Vicks vapor rub to open sinuses Sinus rinses for congestion Cepacol spray, cough drops, throat lozenges, warm tea with honey/lemon, gargle salt water to soothe throat BRAT diet for diarrhea Clear liquids x 24 hours then advance as tolerated for nausea/vomiting Go to the ED if you develop a worsening in your condition- high fever not controlled by Tylenol or Motrin, dehydration, weakness, lethargy, shortness of breath, or chest pain. Follow up with your PCP in 3-5 days if symptoms persist. Patient Language: Citizen Of [place] Prescriptions: New benzonatate 200 mg capsule 200 mg PO TID 7 Days Qty: 21 0RF prednisone 20 mg tablet 40 mg PO DAILY 5 Days Qty: 10 0RF No Action levothyroxine [Synthroid] 25 mcg tablet 12.5 mcg PO DAILY aspirin 81 mg tablet,delayed release (DR/EC) 81 mg PO DAILY multivitamin Tablet 1 tablet PO DAILY atorvastatin [Lipitor] 20 mg tablet 20 mg PO DAILY Qty: 90 3RF Follow-up/Referrals: Black Ireland MD [Primary Care Provider] - Time of Disposition: 14:38 Quality NIHSS Nursing Documentation ED NIHSS nursing documentation: reviewed/agree
== END 2024-03-27 14:45 | disposition home or self-care (01) ==
PROVIDERS: Emergency Provider Nurse Practitioner Family; PCP Family Medicine
DX: J06.9 Acute upper respiratory infection, unspecified (principal); R09.82 Postnasal drip; E78.2 Mixed hyperlipidemia; E03.9 Hypothyroidism, unspecified
CPT/HCPCS: 71046; 99213; G0463

== ENCOUNTER 2024-07-22 11:05 | Outpatient (CLI) | payer MEDICARE, SELFPAY ==
[2024-07-22 11:36] LABS: Hematocrit 41.2 % (42.0-52.0); Hemoglobin 13.8 g/dL (14.0-18.0); Mean Corpuscular HGB Conc 33.5 g/dl (32-36); Mean Corpuscular Hemoglobin 31.4 pg (26-34); Mean Corpuscular Volume 93.8 fl (80-100); Mean Platelet Volume 10.4 fl (7.4-10.4); Platelet Count Result 186 k/mm3 (150-375); Red Blood Count 4.39 M/mm3 (4.6-6.20); Red Cell Distribution Width 13.1 % (11.5-14.5); White Blood Count 5.5 K/mm3 (4.5-10.0)
[2024-07-22 12:04] LABS: Alanine Aminotransferase 38 U/L (6-50); Albumin Level 4.2 g/dL (3.5-5.1); Alkaline Phosphatase 49 U/L (38-126); Amylase 94 U/L (30-110); Anion Gap 6 mmol/L (4-12); Aspartate Amino Transferase 36 U/L (17-59); Bilirubin,Total 0.7 mg/dL (0.2-1.3); Blood Urea Nitrogen 21 mg/dL (9-20); Calcium 8.3 mg/dL (8.4-10.2); Carbon Dioxide 25 mmol/L (22-30); Chloride 105 mmol/L (98-107); Estimated Glomerular Filt Rate > 60; Glucose 94 mg/dL (65-110); Lipase 138 U/L (23-300); Potassium 4.4 mmol/L (3.4-5.0); Sodium 136 mmol/L (137-145); Total Protein 7.2 g/dL (6.3-8.2)
--- OUTSIDE RECORDS SUMMARY | 2024-07-22 13:09 | XMS_ITS | Clinical Summary ---
Author Organization [facility] Address [address] [place] [address] Care Team Providers Care Group Fitness Department Head Name Role Phone Rory Hilton MD Primary Care Provider [phone] Source Comments [facility] [employer],non-owned Affiliates and Associated Physician Practices is amultiple site organization consisting of ambulatory clinics and hospital sitesin [place], [place], [place] and [place]. This disclosure is being madepursuant to the Care Everywhere program and may not contain all information available regarding this patient. Last updated 17.[facility] [employer] Social History Tobacco Use Types Packs/Day Years Used Date Smoking Tobacco: Never Assessed Sex and Gender Information Value Date Recorded Sex Assigned at Not on file Legal Sex Male 3:56 PM CDT Gender Identity Not on file Sexual Orientation [...] VACCINE ( - 2023-2 5 season) 2023 DEPRESSION SCREENING 02/12/2024 MEDICARE AWV CALENDAR YEAR 2024 INFLUENZA VACCINE (Season Ended) 2024 Respiratory Syncytial Virus (RSV) Vaccine Pt: [...] to complete this topic MENINGOCOCCAL (Group B) VACC INE SHARED DECISION-MAKING Aged Out No longer eligibl e based on patient's age to complete this topic MENINGOCOCCAL GROUPS A/C/Y/W VACCINE Aged Out No longer eligible b ased on patient's age to complete this topic Insurance [facility] [place] [address] Care Teams Group Fitness Department Head Relationship Specialty Start Date End Date Rory Hilton MD [address] [place] [id number] PCP - General 11/02/21
--- OUTSIDE RECORDS SUMMARY | 2024-07-22 13:09 | XMS_ITS | Clinical Summary ---
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 Will check thyroid function test and adjust levothyroxine dose accordingly. TSH goal lower normal Assessment & Plan (02/18/2023 5:24 PM FIREARMS ASSEMBLY SUPERVISOR): Continue levothyroxine dose at 150 mcg every day Will follow up on thyroid levels done today TSH goal lower normal Assessment & Plan (01/23/2022 12:05 PM FIREARMS ASSEMBLY SUPERVISOR): Lower levothyroxine dose to 150 mcg every day Will follow up on thyroid levels done locally TSH goal lower normal Assessment & Plan (01/09/2021 1:58 PM FIREARMS ASSEMBLY SUPERVISOR): Continue current levothyroxine dose. Will follow up on thyroid levels done locally TSH goal lower normal Assessment & Plan (01/06/2019 2:19 PM FIREARMS ASSEMBLY SUPERVISOR): Continue current levothyroxine dose. Will check thyroid function test and adjust levothyroxine dose accordingly. Thyroid cancer 10/23/2017 Cancer Staging:Pathologic:Stage I(pT2, pNX, cM0, Age at diagnosis: >= 55 years) - Signed by Hina Odonnell NP on 10/23/2017 Assessment & Plan (03/24/2024 11:40 AM FIREARMS ASSEMBLY SUPERVISOR): No evidence of tumor recurrence on biochemical and radiological data so far. Will continue annual thyroid function test and tumor markers.- will follow up on labs completed this year locally Neck US as needed Assessment & Plan (02/18/2023 5:24 PM FIREARMS ASSEMBLY SUPERVISOR): No evidence of tumor recurrence on biochemical and radiological data so far. Will continue annual thyroid function test and tumor markers.- repeat labs today in clinic. Neck US as needed Assessment & Plan (01/23/2022 12:05 PM FIREARMS ASSEMBLY SUPERVISOR): No evidence of tumor recurrence on biochemical and radiological data so far. Will continue annual thyroid function test and tumor markers.- will follow up on labs completed this year locally Neck US as needed Assessment & Plan (01/09/2021 1:59 PM FIREARMS ASSEMBLY SUPERVISOR): No evidence of tumor recurrence on biochemical and radiological data so far. Will continue annual thyroid function test and tumor markers.- will follow up on labs completed this year locally Neck US as needed Assessment & Plan (01/05/2020 12:27 PM FIREARMS ASSEMBLY SUPERVISOR): No evidence of tumor recurrence on biochemical [...] time). His insurance will be changing to [employer], will need to switch pharmacy to [facility] in February. - recheck TSH and FT4 in 3 months Assessment & Plan (01/06/2019 2:20 PM FIREARMS ASSEMBLY SUPERVISOR): No evidence of tumor recurrence on biochemical [...] range, will plan follow-up on yearly basis Surgical History Surgery Date Site/Laterality Comments THYROID [...] on file Legal Sex Male 2:50 AM FIREARMS ASSEMBLY SUPERVISOR Gender Identity Male 12/25/2020 10:08 AM FIREARMS ASSEMBLY SUPERVISOR Sexual Orientation Straight 12/15/2021 11 :25 AM CDT Obstetrics History Last Filed Vital Signs Vital Sign Reading Time Taken Comments Blood Pressure 166/91 03/24/2024 9:29 AM FIREARMS ASSEMBLY SUPERVISOR anx iety Pulse 92 03/24/2024 9:29 AM FIREARMS ASSEMBLY SUPERVISOR Temperature 36.7 C (98.1 F) 03/24/2024 9:29 AM FIREARMS ASSEMBLY SUPERVISOR Respiratory Rate 17 03/24/2024 9:29 AM FIREARMS ASSEMBLY SUPERVISOR Oxygen Saturation 98% 03/24/2024 9:29 AM FIREARMS ASSEMBLY SUPERVISOR Inhaled Oxygen Concentration - - Weight 83.6 kg (184 lb 3.2 oz) 03/24/2024 9:29 A M FIREARMS ASSEMBLY SUPERVISOR Height 177.8 cm (5' 10) 03/24/2024 9:29 AM FIREARMS ASSEMBLY SUPERVISOR Body Mass Index 26.43 03/24/2024 9:29 AM FIREARMS ASSEMBLY SUPERVISOR Plan of Treatment Health Maintenance Due Date Last Done Comments Colon Cancer Screening-Colonoscopy 1952 Depression Screening 1952 Fall Risk Assessment 1950 Hepatitis C Screening 1950 DTaP/Tdap/Td Vaccine (1 - Tdap) 05/26/1963 Hepatitis B Screening 1970 Well Visit 65+ 2017 Covid-19 Vaccine (2023-2 5 season) 2023 11/06/2020, 04/17/2020, 03/20/2020 Influenza Vaccine (Season Ended) 2024 11/21/2020, 10/15/2019, 11/21/2017, Additional history exists Zoster Vaccine Completed 01/22/2019, 11/07/2018 Pneumococcal vaccine 65+ Completed 10/16/2019, 10/13 Insurance [employer] [facility] MEDICARE [employer] [facility] UHC MEDICARE [facility] MEDIC[facility] Address: [address] [address] [place] [address] [facility] MEDICARE Care Teams Pharmacy Consultant Relationship Specialty Start Date End Date No, Physician PCP - General 01/23/22 Mylene Francois MD Radiation Oncologist Radiation Oncology 10/23/17
--- OUTSIDE RECORDS SUMMARY | 2024-07-22 13:09 | XMS_ITS | Referral Summary ---
Author Organization [facility] [address] [facility] Address [address] [place] [address] Care Team Providers Care Music Engraver Name Role Phone Mylene Francois MD Unavailable [phone] No, Physician Primary Care Provider [phone] Allergies No known active allergies Medications multivitamin [...] 01/06/2019 Assessment & Plan (03/24/2024 11:40 AM SENIOR CONSULTANT): Continue current levothyroxine dose. Will check thyroid function test and adjust levothyroxine dose accordingly. TSH goal lower normal Assessment & Plan (02/18/2023 5:24 PM SENIOR CONSULTANT): Continue levothyroxine dose at 150 mcg every day Will follow up on thyroid levels done today TSH goal lower normal Assessment & Plan (01/23/2022 12:05 PM SENIOR CONSULTANT): Lower levothyroxine dose to 150 mcg every day Will follow up on thyroid levels done locally TSH goal lower normal Assessment & Plan (01/09/2021 1:58 PM SENIOR CONSULTANT): Continue current levothyroxine dose. Will follow up on thyroid levels done locally TSH goal lower normal Assessment & Plan (01/06/2019 2:19 PM SENIOR CONSULTANT): Continue current levothyroxine dose. Will check thyroid function test and adjust levothyroxine dose accordingly. Thyroid cancer 10/23/2017 Cancer Staging:Pathologic:Stage I(pT2, pNX, cM0, Age at diagnosis: >= 55 years) - Signed by Hina Odonnell NP on 10/23/2017 Assessment & Plan (03/24/2024 11:40 AM SENIOR CONSULTANT): No evidence of tumor recurrence on biochemical and radiological data so far. Will continue annual thyroid function test and tumor markers.- will follow up on labs completed this year locally Neck US as needed Assessment & Plan (02/18/2023 5:24 PM SENIOR CONSULTANT): No evidence of tumor recurrence on biochemical and radiological data so far. Will continue annual thyroid function test and tumor markers.- repeat labs today in clinic. Neck US as needed Assessment & Plan (01/23/2022 12:05 PM SENIOR CONSULTANT): No evidence of tumor recurrence on biochemical and radiological data so far. Will continue annual thyroid function test and tumor markers.- will follow up on labs completed this year locally Neck US as needed Assessment & Plan (01/09/2021 1:59 PM SENIOR CONSULTANT): No evidence of tumor recurrence on biochemical and radiological data so far. Will continue annual thyroid function test and tumor markers.- will follow up on labs completed this year locally Neck US as needed Assessment & Plan (01/05/2020 12:27 PM SENIOR CONSULTANT): No evidence of tumor recurrence on biochemical [...] time). His insurance will be changing to [employer], will need to switch pharmacy to [facility] in February. - recheck TSH and FT4 in 3 months Assessment & Plan (01/06/2019 2:20 PM SENIOR CONSULTANT): No evidence of tumor recurrence on biochemical [...] on file Legal Sex Male 2:50 AM SENIOR CONSULTANT Gender Identity Male 12/25/2020 10:08 AM SENIOR CONSULTANT Sexual Orientation Straight 12/15/2021 11 :25 AM CDT Last Filed Vital Signs Vital Sign Reading Time Taken Comments Blood Pressure 166/91 03/24/2024 9:29 AM SENIOR CONSULTANT anx iety Pulse 92 03/24/2024 9:29 AM SENIOR CONSULTANT Temperature 36.7 C (98.1 F) 03/24/2024 9:29 AM SENIOR CONSULTANT Respiratory Rate 17 03/24/2024 9:29 AM SENIOR CONSULTANT Oxygen Saturation 98% 03/24/2024 9:29 AM SENIOR CONSULTANT Inhaled Oxygen Concentration - - Weight 83.6 kg (184 lb 3.2 oz) 03/24/2024 9:29 A M SENIOR CONSULTANT Height 177.8 cm (5' 10) 03/24/2024 9:29 AM SENIOR CONSULTANT Body Mass Index 26.43 03/24/2024 9:29 AM SENIOR CONSULTANT Plan of Treatment Not on file Insurance [facility] AETNA MEDICARE [facility] UHC MEDICARE [facility]VANTAGE [facility] Care Teams Music Engraver Relationship Specialty Start Date End Date No, Physician PCP - General 01/23/22 Mylene Francois MD Radiation Oncologist Radiation Oncology 10/23/17
--- OUTSIDE RECORDS SUMMARY | 2024-07-22 13:09 | XMS_ITS | Encounter Summary ---
Author Organization [facility] Address [address] [facility] [place] [address] Care Team Providers Care Certified Ophthalmic Surgical Assistant Name Role Phone Rory Hilton MD Primary Care Provider Encounter Details Date Type Department Care Team (Late st Contact Info) Description 11/02/[address] [facility] DermPath Lab [address] [place] [id number] Usman Hilton MD [address] [place], [place] [id number] Social History Tobacco Use Types Packs/Day Years [...] AM CDT) Case Report Dermatopathology Report Case: [id number] Authorizing Provider: Usman Hilton MD Collected: 11/01/2021 12:00 AM Ordering Location: [facility] DermPath Lab Received: 11/02/2021 05:24 PM Pathologist: Marifer Iyer MD Specimen: Skin, right cheek 2 1:00 PM CDT DERMATOPATHOLOGY LABORATORY Final Diagnosis Specimen A. SKIN, right cheek: BASAL CELL CARCINOMA, NODULAR TYPE (C44.319) 2 1:00 PM CDT DERMATOPATHOLOGY LABORATORY at 1300 CDT Clinical History R/O BCC 2 1:00 PM [...] characteristic determined by the Dermatopathology Laboratory at [facility], directed by Dr. Nicci Lyman. These tests need not be, and therefore are not, approved by the [place] Food and Drug Administration. The tests are used for clinical purposes. Billing Codes Specimen Charges Stain Charges 25041 1 2 1:00 PM CDT DERMATOPATHOLOGY LABORATORY Embedded Images 2 1:00 PM CDT DERMATOPATHOLOGY LABORATORY Pathology/Cytolog y TISSUE SPECIMEN FROM SKIN / Unknown 11/01/2021 11/02/2021 5:24 PM CDT Usman Hilton MD LAB - PATHOLOGY/CYTOLOGY ORD ERABLES Final Result DERMATOPATHOLOGY LABORATORY [facility] - Department of Dermatology [facility] Specialized Medicine [address] [place] [address], [address] [place] [address], [facility] [phone] documented in this encounter Visit Diagnoses Not on filedocumented in this encounter Care Teams Certified Ophthalmic Surgical Assistant Relationship Specialty Start Date End Date Rory Hilton MD [address] [place] [id number] PCP - General 11/02/21 documented as of this encounter
== END 2024-07-22 11:06 | disposition home or self-care (01) ==
LOC: ANHLAB 11:06
PROVIDERS: PCP Family Medicine; Visit Provider Nurse Practitioner
DX: R10.13 Epigastric pain (principal)
CPT/HCPCS: 36415; 80053; 82150; 83690; 85027

== ENCOUNTER 2024-08-10 07:40 | Outpatient (CLI) | payer MEDICARE, SELFPAY ==
[2024-08-10 08:51] LABS: Free T4 Free Thyroxine. 1.42 ng/dL (0.78-2.19)
[2024-08-10 09:05] LABS: Thyroid Stimulating Hormone 0.905 uIU/mL (0.465-4.680)
== END 2024-08-10 07:41 | disposition home or self-care (01) ==
PROVIDERS: PCP Family Medicine
DX: C73 Malignant neoplasm of thyroid gland (principal)
CPT/HCPCS: 36415; 84439; 84443

== ENCOUNTER 2024-08-13 07:47 | Outpatient (CLI) | payer MEDICARE, SELFPAY ==
--- NOTE | ~2024-08-13 | US_ITS ---
Limited Abdominal Sonogram: Real-time sonographic imaging of the right upper quadrant was performed. Clinical History: Epigastric pain, gallstones Findings: The liver appears normal with no evidence of mass lesion or bile duct dilatation. Main por neelam vein demonstrates normal direction of flow. The gallbladder is well distended, and demonstrate se veral small mobile gallstones. The common bile duct measures 4 mm. The visualized pancreas, aorta, a nd IVC are unremarkable. Impression: Probable small gallstones. Reviewed, dictated and finalized at location M. Impression: Probable small gallstones.
--- OUTSIDE RECORDS SUMMARY | 2024-08-13 07:50 | XMS_ITS | Encounter Summary ---
Author Organization [facility] Address [address] [facility] [place] [address] Care Team Providers Care Compliance Clerk Name Role Phone Rory Hilton MD Primary Care Provider [phone] Encounter Details Date Type Department Care Team (Late st Contact Info) Description 11/02/2021 Lab Requisition [facility] DermPath Lab [address] [place] [phone] Usman Hilton MD [address] [place], [place] [id number] Social History Tobacco Use Types Packs/Day Years [...] AM CDT) Case Report Dermatopathology Report Case: [id number] Authorizing Provider: Usman Hilton MD Collected: 11/01/2021 12:00 AM Ordering Location: [facility] DermPath Lab Received: 11/02/2021 05:24 PM Pathologist: Marifre Iyer MD Specimen: Skin, right cheek 2 [...] characteristic determined by the Dermatopathology Laboratory at [facility], directed by Dr. Nicci Lyman. These tests need not be, and therefore are not, approved by the [place] Food and Drug Administration. The tests are used for clinical purposes. Billing Codes Specimen Charges Stain Charges 47080 1 2 1:00 PM CDT DERMATOPATHOLOGY LABORATORY Embedded Images 2 1:00 PM CDT DERMATOPATHOLOGY LABORATORY Pathology/Cytolog y TISSUE SPECIMEN FROM SKIN / Unknown 11/01/2021 11/02/2021 5:24 PM CDT Usman Hilton MD LAB - PATHOLOGY/CYTOLOGY ORD ERABLES Final Result DERMATOPATHOLOGY LABORATORY [facility] - Department of Dermatology [facility] Specialized Medicine [address] [place] [address], [address] [place] [address], [facility] [phone] documented in this encounter Visit Diagnoses Not on filedocumented in this encounter Care Teams Compliance Clerk Relationship Specialty Start Date End Date Rory Hilton MD [address] [place] [id number] PCP - General 11/02/21 documented as of this encounter
--- OUTSIDE RECORDS SUMMARY | 2024-08-13 07:50 | XMS_ITS | Clinical Summary ---
Author Organization [facility] Address [address] [place] [address] Care Team Providers Care Product Support Analyst Name Role Phone Rory Hilton MD Primary Care Provider Source Comments [facility] [employer],non-owned Affiliates and Associated Physician Practices is amultiple site organization consisting of ambulatory clinics and hospital sitesin [place], [place], [place] and [place]. This disclosure is being madepursuant to the Care Everywhere program and may not contain all information available regarding this patient. Last updated 17.[facility] [employer] Social History Tobacco Use Types Packs/Day Years [...] patient's age to complete this topic Insurance [facility] MANAGED MEDICARE ADV Care Teams Product Support Analyst Relationship Specialty Start Date End Date Rory Hilton MD [address] [place] [id number] PCP - General 11/02/21
--- OUTSIDE RECORDS SUMMARY | 2024-08-13 07:50 | XMS_ITS | Clinical Summary ---
Author Organization [facility] [address] [facility] Address [address] [place] [address] Care Team Providers Care New Client Banking Services Clerk Name Role Phone Mylene Francois MD Unavailable [phone] No, Physician Primary Care Provider [phone] Allergies No known active allergies Medications multivitamin with minerals tablet Take 1 tablet by mouth daily Active scopolamine 1 mg over 3 days patch 3 day ELMA 1 PATCH BEHIND EAR Q 72 HOURS. 0 9 Active psyllium seed, with dextrose, (FIBER ORAL) Take by mouth Active aspirin 81 mg enteric coated tablet Take 1 tablet (81 mg total) by mouth daily Active ciprofloxacin (CIPRO) 500 mg tablet Take 1 tablet (500 mg total) by mouth as needed 1 Active omeprazole 20 mg tablet,delayed release (DR/EC) Take 1 tablet (20 mg total) by mouth as needed 2 Active atorvastatin (LIPITOR) 20 mg tablet 2 Active levothyroxine (SYNTHROID) 150 mcg tablet TAKE 1 TABLET DAILY 90 tablet 5 Active levothyroxine (SYNTHROID) 150 mcg tablet TAKE 1 TABLET DAILY 90 tablet 5 08/05/19 25 Discontinued Active Problems Problem Noted Date Diagnosed Date 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 Will check thyroid function test and adjust levothyroxine dose accordingly. TSH goal lower normal Assessment & Plan (02/18/2023 5:24 PM RADIOLOGY EQUIPMENT SERVICER): Continue levothyroxine dose at 150 mcg every day Will follow up on thyroid levels done today TSH goal lower normal Assessment & Plan (01/23/2022 12:05 PM RADIOLOGY EQUIPMENT SERVICER): Lower levothyroxine dose to 150 mcg every day Will follow up on thyroid levels done locally TSH goal lower normal Assessment & Plan (01/09/2021 1:58 PM RADIOLOGY EQUIPMENT SERVICER): Continue current levothyroxine dose. Will follow up on thyroid levels done locally TSH goal lower normal Assessment & Plan (01/06/2019 2:19 PM RADIOLOGY EQUIPMENT SERVICER): Continue current levothyroxine dose. Will check thyroid function test and adjust levothyroxine dose accordingly. Thyroid cancer 10/23/2017 Cancer Staging:Pathologic:Stage I(pT2, pNX, cM0, Age at diagnosis: >= 55 years) - Signed by Hina Odonnell NP on 10/23/2017 Assessment & Plan (03/24/2024 11:40 AM RADIOLOGY EQUIPMENT SERVICER): No evidence of tumor recurrence on biochemical and radiological data so far. Will continue annual thyroid function test and tumor markers.- will follow up on labs completed this year locally Neck US as needed Assessment & Plan (02/18/2023 5:24 PM RADIOLOGY EQUIPMENT SERVICER): No evidence of tumor recurrence on biochemical and radiological data so far. Will continue annual thyroid function test and tumor markers.- repeat labs today in clinic. Neck US as needed Assessment & Plan (01/23/2022 12:05 PM RADIOLOGY EQUIPMENT SERVICER): No evidence of tumor recurrence on biochemical and radiological data so far. Will continue annual thyroid function test and tumor markers.- will follow up on labs completed this year locally Neck US as needed Assessment & Plan (01/09/2021 1:59 PM RADIOLOGY EQUIPMENT SERVICER): No evidence of tumor recurrence on biochemical and radiological data so far. Will continue annual thyroid function test and tumor markers.- will follow up on labs completed this year locally Neck US as needed Assessment & Plan (01/05/2020 12:27 PM RADIOLOGY EQUIPMENT SERVICER): No evidence of tumor recurrence on biochemical [...] time). His insurance will be changing to [employer], will need to switch pharmacy to [facility] in February. - recheck TSH and FT4 in 3 months Assessment & Plan (01/06/2019 2:20 PM RADIOLOGY EQUIPMENT SERVICER): No evidence of tumor recurrence on biochemical [...] on file Legal Sex Male 2:50 AM RADIOLOGY EQUIPMENT SERVICER Gender Identity Male 12/25/2020 10:08 AM RADIOLOGY EQUIPMENT SERVICER Sexual Orientation Straight 12/15/2021 11 :25 AM CDT Obstetrics History Last Filed Vital Signs Vital Sign Reading Time Taken Comments Blood Pressure 166/91 03/24/2024 9:29 AM RADIOLOGY EQUIPMENT SERVICER anx iety Pulse 92 03/24/2024 9:29 AM RADIOLOGY EQUIPMENT SERVICER Temperature 36.7 C (98.1 F) 03/24/2024 9:29 AM RADIOLOGY EQUIPMENT SERVICER Respiratory Rate 17 03/24/2024 9:29 AM RADIOLOGY EQUIPMENT SERVICER Oxygen Saturation 98% 03/24/2024 9:29 AM RADIOLOGY EQUIPMENT SERVICER Inhaled Oxygen Concentration - - Weight 83.6 kg (184 lb 3.2 oz) 03/24/2024 9:29 A M RADIOLOGY EQUIPMENT SERVICER Height 177.8 cm (5' 10) 03/24/2024 9:29 AM RADIOLOGY EQUIPMENT SERVICER Body Mass Index 26.43 03/24/2024 9:29 AM RADIOLOGY EQUIPMENT SERVICER Plan of Treatment Health Maintenance Due Date Last Done Comments Colon Cancer Screening-Colonoscopy 1952 Depression Screening 1952 Fall Risk Assessment 1950 Hepatitis C Screening 1950 DTaP/Tdap/Td Vaccine (1 - Tdap) 05/26/1963 Hepatitis B Screening 1970 Well Visit 65+ 2017 Covid-19 Vaccine (4 2023-2 5 season) 2023 11/06/2020, 04/17/2020, 03/20/2020 Influenza Vaccine (#1) 2024 , 10/15/2019, 11/21/2017, Additional history exists Zoster Vaccine Completed 01/22/2019, 11/07/2018 Pneumococcal vaccine 65+ Completed 10/16/2019, 10/13 Procedures Procedure Name Priority Date/Time Associated Diagnosis Comments T4, FREE Routine 08/10/2024 5:54 PM CDT Thyroid cancer (HCC) TSH Routine 08/10/2024 5:54 PM CDT Thyroid cancer (HCC) from Last 3 Months Results * T4, free (08/10/2024 5:54 PM CDT) Blood Mark Calvin MD LAB BLOOD ORDERABLES Final Resu lt EXTERNAL LAB * TSH (08/10/2024 5:54 PM CDT) Blood Mark Calvin MD LAB BLOOD ORDERABLES Final Resu lt EXTERNAL LAB from Last 3 Months Insurance [facility] [employer] MEDICARE [employer] H[employer]O Address: [facility] [id number] [place] [address] UHC MEDICARE ADVANTAGE ON LICENSE OF [facility] MEDICARE Care Teams New Client Banking Services Clerk Relationship Specialty Start Date End Date No, Physician PCP - General 01/23/22 Mylene Francois MD Radiation Oncologist Radiation Oncology 10/23/17
--- OUTSIDE RECORDS SUMMARY | 2024-08-13 07:50 | XMS_ITS | Referral Summary ---
Author Organization [facility] [address] [facility] Address [address] [place] [address] Care Team Providers Care Surfboard Designer Name Role Phone Mylene Francois MD Unavailable [phone] No, Physician Primary Care Provider [phone] Allergies No known active allergies Medications multivitamin [...] 01/06/2019 Assessment & Plan (03/24/2024 11:40 AM HELP DESK AGENT): Continue current levothyroxine dose. Will check thyroid function test and adjust levothyroxine dose accordingly. TSH goal lower normal Assessment & Plan (02/18/2023 5:24 PM HELP DESK AGENT): Continue levothyroxine dose at 150 mcg every day Will follow up on thyroid levels done today TSH goal lower normal Assessment & Plan (01/23/2022 12:05 PM HELP DESK AGENT): Lower levothyroxine dose to 150 mcg every day Will follow up on thyroid levels done locally TSH goal lower normal Assessment & Plan (01/09/2021 1:58 PM HELP DESK AGENT): Continue current levothyroxine dose. Will follow up on thyroid levels done locally TSH goal lower normal Assessment & Plan (01/06/2019 2:19 PM HELP DESK AGENT): Continue current levothyroxine dose. Will check thyroid function test and adjust levothyroxine dose accordingly. Thyroid cancer 10/23/2017 Cancer Staging:Pathologic:Stage I(pT2, pNX, cM0, Age at diagnosis: >= 55 years) - Signed by Hina Odonnell NP on 10/23/2017 Assessment & Plan (03/24/2024 11:40 AM HELP DESK AGENT): No evidence of tumor recurrence on biochemical and radiological data so far. Will continue annual thyroid function test and tumor markers.- will follow up on labs completed this year locally Neck US as needed Assessment & Plan (02/18/2023 5:24 PM HELP DESK AGENT): No evidence of tumor recurrence on biochemical and radiological data so far. Will continue annual thyroid function test and tumor markers.- repeat labs today in clinic. Neck US as needed Assessment & Plan (01/23/2022 12:05 PM HELP DESK AGENT): No evidence of tumor recurrence on biochemical and radiological data so far. Will continue annual thyroid function test and tumor markers.- will follow up on labs completed this year locally Neck US as needed Assessment & Plan (01/09/2021 1:59 PM HELP DESK AGENT): No evidence of tumor recurrence on biochemical and radiological data so far. Will continue annual thyroid function test and tumor markers.- will follow up on labs completed this year locally Neck US as needed Assessment & Plan (01/05/2020 12:27 PM HELP DESK AGENT): No evidence of tumor recurrence on biochemical [...] time). His insurance will be changing to [employer], will need to switch pharmacy to [facility] in February. - recheck TSH and FT4 in 3 months Assessment & Plan (01/06/2019 2:20 PM HELP DESK AGENT): No evidence of tumor recurrence on biochemical [...] on file Legal Sex Male 2:50 AM HELP DESK AGENT Gender Identity Male 12/25/2020 10:08 AM HELP DESK AGENT Sexual Orientation Straight 12/15/2021 11 :25 AM CDT Last Filed Vital Signs Vital Sign Reading Time Taken Comments Blood Pressure 166/91 03/24/2024 9:29 AM HELP DESK AGENT anx iety Pulse 92 03/24/2024 9:29 AM HELP DESK AGENT Temperature 36.7 C (98.1 F) 03/24/2024 9:29 AM HELP DESK AGENT Respiratory Rate 17 03/24/2024 9:29 AM HELP DESK AGENT Oxygen Saturation 98% 03/24/2024 9:29 AM HELP DESK AGENT Inhaled Oxygen Concentration - - Weight 83.6 kg (184 lb 3.2 oz) 03/24/2024 9:29 A M HELP DESK AGENT Height 177.8 cm (5' 10) 03/24/2024 9:29 AM HELP DESK AGENT Body Mass Index 26.43 03/24/2024 9:29 AM HELP DESK AGENT Plan of Treatment Not on file Procedures Procedure Name Priority Date/Time Associated Diagnosis Comments T4, FREE Routine 08/10/2024 5:54 PM CDT Thyroid cancer (HCC) TSH Routine 08/10/2024 5:54 PM CDT Thyroid cancer (HCC) from Last 3 Months Results * T4, free (08/10/2024 5:54 PM CDT) Blood Mark Calvin MD LAB BLOOD ORDERABLES Final Resu lt Performing Organization Address [facility]/ZIP Co de Phone Number EXTERNAL LAB * TSH (08/10/2024 5:54 PM CDT) Blood Mark Calvin MD LAB BLOOD ORDERABLES Final Resu lt Performing Organization Address [facility]/ZIP Co de Phone Number EXTERNAL LAB from Last 3 Months Insurance [email or web address] [facility] MEDICARE [email or web address] [facility] MEDICARE ADVANTAGE [facility] MEDICARE Care Teams Surfboard Designer Relationship Specialty Start Date End Date No, Physician PCP - General 01/23/22 Mylene Francois MD Radiation Oncologist Radiation Oncology 10/23/17
== END 2024-08-13 07:48 | disposition home or self-care (01) ==
PROVIDERS: PCP Family Medicine; Visit Provider Nurse Practitioner
DX: R10.13 Epigastric pain (principal)
CPT/HCPCS: 76705

== ENCOUNTER 2024-09-29 09:36 | Outpatient (CLI) | payer MEDICARE, SELFPAY ==
--- OUTSIDE RECORDS SUMMARY | 2024-09-29 09:56 | XMS_ITS | Encounter Summary ---
Author Organization [facility] Address [address] [place] [address] Care Team Providers Care Irrigation Equipment Installer Name Role Phone Rory Hilton MD Primary Care Provider [phone] Encounter Details Date Type Department Care Team (Late st Contact Info) Description 11/02/[address] [facility] [address] [place] [id number] Usman Hilton MD [address] [place], [place] [id number] Social History Tobacco Use Types Packs/Day Years [...] AM CDT) Case Report Dermatopathology Report Case: [id number] Authorizing Provider: Usman Hilton MD Collected: 11/01/2021 12:00 AM Ordering Location: [facility] Received: 11/02/2021 05:24 PM [...] determined by the Dermatopathology Laboratory at [facility], directed by Dr. Nicci Lyman. These tests need not be, and therefore are not, approved by the [place] Food and Drug Administration. The tests are used for clinical purposes. Billing Codes Specimen Charges Stain Charges 44235 1 2 1:00 PM CDT DERMATOPATHOLOGY LABORATORY Embedded Images 2 1:00 PM CDT DERMATOPATHOLOGY LABORATORY Pathology/Cytolog y TISSUE SPECIMEN FROM SKIN / Unknown 11/01/2021 11/02/2021 5:24 PM CDT Usman Hilton MD LAB - PATHOLOGY/CYTOLOGY ORD ERABLES Final Result DERMATOPATHOLOGY LABORATORY [facility] - Department of Dermatology Specialized Medicine [address] [place] [address], [address] [place] [address], [facility] [phone] documented in this encounter Visit Diagnoses Not on filedocumented in this encounter Care Teams Irrigation Equipment Installer Relationship Specialty Start Date End Date Rory Hilton MD [address] [place] [id number] PCP - General 11/02/21 documented as of this encounter
--- OUTSIDE RECORDS SUMMARY | 2024-09-29 09:56 | XMS_ITS | Clinical Summary ---
Author Organization [facility] Address [address] [place] [address] Care Team Providers Care Brush Cleaner Name Role Phone Rory Hilton MD Primary Care Provider Source Comments [facility],non-owned Affiliates and Associated Physician Practices is amultiple site organization consisting of ambulatory clinics and hospital sitesin [place], [place], [place] and [place]. This disclosure is being madepursuant to the Care Everywhere program and may not contain all information available regarding this patient. Last updated 17.[facility] Social History Tobacco Use Types Packs/Day Years [...] MEDICARE AWV CALENDAR YEAR 2024 INFLUENZA VACCINE (#1) 2024 Respiratory Syncytial Virus (RSV) Vaccine Pt: [...] patient's age to complete this topic Insurance [facility] MANAGED MEDICARE ADV Care Teams Brush Cleaner Relationship Specialty Start Date End Date Rory Hilton MD [address] [place] [id number] PCP - General 11/02/21
--- OUTSIDE RECORDS SUMMARY | 2024-09-29 09:56 | XMS_ITS | Clinical Summary ---
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 Will check thyroid function test and adjust levothyroxine dose accordingly. TSH goal lower normal Assessment & Plan (02/18/2023 5:24 PM WELT WHEELER): Continue levothyroxine dose at 150 mcg every day Will follow up on thyroid levels done today TSH goal lower normal Assessment & Plan (01/23/2022 12:05 PM WELT WHEELER): Lower levothyroxine dose to 150 mcg every day Will follow up on thyroid levels done locally TSH goal lower normal Assessment & Plan (01/09/2021 1:58 PM WELT WHEELER): Continue current levothyroxine dose. Will follow up on thyroid levels done locally TSH goal lower normal Assessment & Plan (01/06/2019 2:19 PM WELT WHEELER): Continue current levothyroxine dose. Will check thyroid function test and adjust levothyroxine dose accordingly. Thyroid cancer 10/23/2017 Cancer Staging:Pathologic:Stage I(pT2, pNX, cM0, Age at diagnosis: >= 55 years) - Signed by Hina Odonnell NP on 10/23/2017 Assessment & Plan (03/24/2024 11:40 AM WELT WHEELER): No evidence of tumor recurrence on biochemical and radiological data so far. Will continue annual thyroid function test and tumor markers.- will follow up on labs completed this year locally Neck US as needed Assessment & Plan (02/18/2023 5:24 PM WELT WHEELER): No evidence of tumor recurrence on biochemical and radiological data so far. Will continue annual thyroid function test and tumor markers.- repeat labs today in clinic. Neck US as needed Assessment & Plan (01/23/2022 12:05 PM WELT WHEELER): No evidence of tumor recurrence on biochemical and radiological data so far. Will continue annual thyroid function test and tumor markers.- will follow up on labs completed this year locally Neck US as needed Assessment & Plan (01/09/2021 1:59 PM WELT WHEELER): No evidence of tumor recurrence on biochemical and radiological data so far. Will continue annual thyroid function test and tumor markers.- will follow up on labs completed this year locally Neck US as needed Assessment & Plan (01/05/2020 12:27 PM WELT WHEELER): No evidence of tumor recurrence on biochemical [...] time). His insurance will be changing to [employer], will need to switch pharmacy to [facility] in February. - recheck TSH and FT4 in 3 months Assessment & Plan (01/06/2019 2:20 PM WELT WHEELER): No evidence of tumor recurrence on biochemical [...] on file Legal Sex Male 2:50 AM WELT WHEELER Gender Identity Male 12/25/2020 10:08 AM WELT WHEELER Sexual Orientation Straight 12/15/2021 11 :25 AM CDT Obstetrics History Last Filed Vital Signs Vital Sign Reading Time Taken Comments Blood Pressure 166/91 03/24/2024 9:29 AM WELT WHEELER anx iety Pulse 92 03/24/2024 9:29 AM WELT WHEELER Temperature 36.7 C (98.1 F) 03/24/2024 9:29 AM WELT WHEELER Respiratory Rate 17 03/24/2024 9:29 AM WELT WHEELER Oxygen Saturation 98% 03/24/2024 9:29 AM WELT WHEELER Inhaled Oxygen Concentration - - Weight 83.6 kg (184 lb 3.2 oz) 03/24/2024 9:29 A M WELT WHEELER Height 177.8 cm (5' 10) 03/24/2024 9:29 AM WELT WHEELER Body Mass Index 26.43 03/24/2024 9:29 AM WELT WHEELER Plan of Treatment Health Maintenance Due Date [...] T4, free (08/10/2024 5:54 PM CDT) Blood us Mark Calvin MD LAB BLOOD ORDERABLES Final Resu lt EXTERNAL LAB * TSH (08/10/2024 5:54 PM CDT) Blood Mark Calvin MD LAB BLOOD ORDERABLES Final Resu lt EXTERNAL LAB from Last 3 Months Insurance [facility] [employer] MEDICARE [facility] [employer] MEDICARE ADVANTAGE [facility] MEDICARE Care Teams Axminster Weaver Relationship Specialty Start Date End Date No, Physician PCP - General 01/23/22 Mylene Francois MD Radiation Oncologist Radiation Oncology 10/23/17
--- NOTE | 2024-09-29 10:00 | NEURO_ITS ---
Impression: # Non-diabetic complains of numbness in all extremities. ? 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 # No Carpal Tunnel Syndrome. # Normal Nerve Conduction Studies of lower extremities. ? # Normal Needle/ EMG exam Nerve Conduction Studies ?Stim Site NR Peak (ms) P-T Amp (?V) Site1 Site2 Delta-P (ms) Dist (cm) Andres (m/s) Left Median Anti Sensory (2-3nd Digit) Wrist ? 3.2 38.8 Wrist 2-3nd Digit 3.2 14.0 44 Wrist ? 3.2 31.8 Wrist 2-3nd Digit 3.2 14.0 44 Right Median Anti Sensory (2-3nd Digit) Wrist ? 3.1 24.8 Wrist 2-3nd Digit 3.1 14.0 45 Wrist ? 3.1 23.9 Wrist 2-3nd Digit 3.1 14.0 45 Left Radial Anti Sensory (Base 1st Digit) Wrist ? 2.4 23.2 Wrist Base 1st Digit 2.4 0.0 Right Radial Anti Sensory (Base 1st Digit) Wrist ? 2.3 18.1 Wrist Base 1st Digit 2.3 0.0 Left Sup Fibular Anti Sensory (Ant Lat Mall) 14 cm ? 2.8 22.9 14 cm Ant Lat Mall 2.8 16.0 57 Right Sup Fibular Anti Sensory (Ant Lat Mall) 14 cm ? 3.4 10.6 14 cm Ant Lat Mall 3.4 16.0 47 Left Sural Anti Sensory (Lat Mall) Calf ? 3.8 13.0 Calf Lat Mall 3.8 16.0 42 Right Sural Anti Sensory (Lat Mall) Calf ? 3.8 7.5 Calf Lat Mall 3.8 16.0 42 Left Ulnar Anti Sensory (5th Digit) Wrist ? 3.4 18.6 Wrist 5th Digit 3.4 14.0 41 Right Ulnar Anti Sensory (5th Digit) Wrist ? 2.9 27.8 Wrist 5th Digit 2.9 14.0 48 ?Stim Site NR Onset (ms) O-P Amp (mV) Site1 Site2 Delta-0 (ms) Dist (cm) Andres (m/s) Left Median Motor (Abd Poll Brev) Wrist ? 3.3 2.8 Elbow Wrist 5.8 32.0 55 Elbow ? 9.1 5.0 Right Median Motor (Abd Poll Brev) Wrist ? 3.4 3.5 Elbow Wrist 5.4 30.0 56 Elbow ? 8.8 3.3 Left Peroneal Motor (Vastus Med) Ankle ? 3.8 3.8 Popit Ankle 9.3 40.0 43 Popit ? 13.1 2.2 Right Peroneal Motor (Vastus Med) Ankle ? 3.8 4.0 Popit Ankle 8.6 40.0 47 Popit ? 12.4 2.8 Left Tibial Motor (Abd Merino Brev) Ankle ? 4.5 4.2 Knee Ankle 8.9 43.0 48 Knee ? 13.4 2.9 Right Tibial Motor (Abd Merino Brev) Ankle ? 4.7 7.4 Knee Ankle 9.8 42.0 43 Knee ? 14.5 2.8 Left Ulnar Motor (Abd Dig Minimi) Wrist ? 3.1 6.2 A Elbow Wrist 6.0 33.0 55 A Elbow ? 9.1 5.2 B Elbow Wrist 4.2 25.0 60 B Elbow ? 7.3 3.8 Right Ulnar Motor (Abd Dig Minimi) Wrist ? 3.4 5.6 A Elbow Wrist 5.8 30.0 52 A Elbow ? 9.2 5.5 B Elbow Wrist 4.1 23.0 56 B Elbow ? 7.5 5.2 F Wave Studies ?NR F-Lat (ms) L-R F-Lat (ms) Left Median (Mrkrs) (Abd Poll Brev) ? 30.88 1.35 Right Median (Mrkrs) (Abd Poll Brev) ? 32.23 1.35 Left Peroneal (Mrkrs) (EDB) ? 51.37 1.84 Right Peroneal (Mrkrs) (EDB) ? 49.53 1.84 Left Tibial (Mrkrs) (Abd Hallucis) ? 53.14 1.84 Right Tibial (Mrkrs) (Abd Hallucis) ? 51.30 1.84 Left Ulnar (Mrkrs) (Abd Dig Min) ? 31.07 1.63 Right Ulnar (Mrkrs) (Abd Dig Min) ? 32.70 1.63 Electromyography ?Side Muscle Nerve Root Ins Act Fibs Amp Dur Recrt Comment Right 1stDorInt Ulnar C8-T1 Nml Nml Nml Nml Nml Right Ext Indicis Radial (Post Int) C7-8 Nml Nml Nml Nml Nml Right Ext Digitorum Radial (Post Int) C7-8 Nml Nml Nml Nml Nml Right BrachioRad Radial C5-6 Nml Nml Nml Nml Nml Right PronatorTeres Median C6-7 Nml Nml Nml Nml Nml Right Abd Poll Brev Median C8-T1 Nml Nml Nml Nml Nml Right ABD Dig Min Ulnar C8-T1 Nml Nml Nml Nml Nml Right FlexPolLong Median (Ant Int) C7-8 Nml Nml Nml Nml Nml Right Abd Poll Long Radial (Post Int) C7-8 Nml Nml Nml Nml Nml Right AntTibialis Dp Br Fibular L4-5 Nml Nml Nml Nml Nml Right Gastroc Tibial S1-2 Nml Nml Nml Nml Nml Right Fibularis Long Sup Br Fibular L5-S1 Nml Nml Nml Nml Nml Right Flex Dig Long Tibial L5-S2 Nml Nml Nml Nml Nml Right Ext Dig Brev Dp Br Fibular L5, S1 Nml Nml Nml Nml Nml Right QuadratusFem QuadFemoris L4-5, S1 Nml Nml Nml Nml Nml Left 1stDorInt Ulnar C8-T1 Nml Nml Nml Nml Nml Left Ext Indicis Radial (Post Int) C7-8 Nml Nml Nml Nml Nml Left Ext Digitorum Radial (Post Int) C7-8 Nml Nml Nml Nml Nml Left BrachioRad Radial C5-6 Nml Nml Nml Nml Nml Left PronatorTeres Median C6-7 Nml Nml Nml Nml Nml Left Abd Poll Brev Median C8-T1 Nml Nml Nml Nml Nml Left ABD Dig Min Ulnar C8-T1 Nml Nml Nml Nml Nml Left FlexPolLong Median (Ant Int) C7-8 Nml Nml Nml Nml Nml Left Abd Poll Long Radial (Post Int) C7-8 Nml Nml Nml Nml Nml Left AntTibialis Dp Br Fibular L4-5 Nml Nml Nml Nml Nml Left Gastroc Tibial S1-2 Nml Nml Nml Nml Nml Left Fibularis Long Sup Br Fibular L5-S1 Nml Nml Nml Nml Nml Left Flex Dig Long Tibial L5-S2 Nml Nml Nml Nml Nml Left Ext Dig Brev Dp Br Fibular L5, S1 Nml Nml Nml Nml Nml Left QuadratusFem QuadFemoris L4-5, S1 Nml Nml Nml Nml Nml
== END 2024-09-29 09:37 | disposition home or self-care (01) ==
PROVIDERS: PCP Family Medicine; Visit Provider Nurse Practitioner Family
DX: G56.23 Lesion of ulnar nerve, bilateral upper limbs (principal)
CPT/HCPCS: 95886; 95913